=== PATIENT | female | born 1990 | race Caucasian/White ===

== ENCOUNTER 2019-01-29 12:57 | Day surgery (SDC) | payer OTHER ==
[2019-01-29] MEDS ORDERED: LIDOCAINE HCL 2% 100 MG/5 ML IJ ONE (12:58)
[2019-01-29] MEDS ORDERED: Depo-Medrol 40 MG/ML IM ONE (12:58)
[2019-01-29] MEDS ORDERED: Ketamine HCl 50 MG/ML IJ ONE (12:58)
[2019-01-29] MEDS ORDERED: Sodium Chloride 0.9(Preservative Free) 10 ML IJ ONE (12:58)
[2019-01-29] MEDS ORDERED: DIPRIVAN 200 MG/20 ML IV ONE (12:58)
[2019-01-29] MEDS ORDERED: Lactated Ringers 1,000 ML IV ONE (14:26)
--- NOTE | 2019-01-29 16:23 | XRAY ---
Indication: Right L4-S1 transforaminal SOBEIDA. Intraoperative fluoroscopy was provided for 1 minute. 3 digital spot images submitted for interpretation demonstrates posterior needle tips in the expected region of the left and right L4-L5 nerve roots. Small amount of contrast injected for needle tip placement. Correlate with intraoperative findings/report.
--- NOTE | 2019-01-29 16:27 | XRAY ---
1 minute of fluoroscopy was used in surgery for L4-L5 and L5-S1 transforaminal SOBEIDA.
== END 2019-01-29 15:13 | disposition home or self-care (01) ==
LOC: SDC-PAIN 12:57
PROVIDERS: ATTEND Psychiatry & Neurology Pain Medicine
DX: M54.17 Radiculopathy, lumbosacral region (principal); M54.30 Sciatica, unspecified side; E03.9 Hypothyroidism, unspecified; K21.9 Gastro-esophageal reflux disease without esophagitis; F41.8 Other specified anxiety disorders; M41.9 Scoliosis, unspecified; Z79.899 Other long term (current) drug therapy
CPT/HCPCS: 64483; 64484; 72100; 77002; J1030; J2704; Q9966

== ENCOUNTER 2019-07-23 10:55 | Day surgery (SDC) | payer SELFPAY ==
[2019-07-23] MEDS ORDERED: DIPRIVAN 200 MG/20 ML IV ONE (11:50)
[2019-07-23] MEDS ORDERED: Ketamine HCl 50 MG/ML ONE (11:50)
[2019-07-23] MEDS ORDERED: Lactated Ringers 1,000 ML IV ONE (12:48)
== END 2019-07-23 11:45 | disposition home or self-care (01) ==
LOC: SDC-PAIN 10:55
PROVIDERS: ATTEND Psychiatry & Neurology Pain Medicine
DX: Z53.8 Procedure and treatment not carried out for other reasons (principal)
CPT/HCPCS: 84703; J2704

== ENCOUNTER 2022-12-15 22:30 | Emergency (ER) | payer OTHER ==
[2022-12-15 23:23] VITALS: BP 133/76; PULSE 94; O2SAT 99
[2022-12-15] MEDS ORDERED: TORAdol 30 mg Injection IM ONE (23:52)
[2022-12-15] MEDS ORDERED: Norflex 60 MG/2 ML IM ONE (23:52)
[2022-12-15] MEDS ORDERED: Norflex 60 MG/2 ML ONE (23:57)
[2022-12-15] MEDS ORDERED: TORAdol 30 mg Injection ONE (23:57)
--- NOTE | 2022-12-16 | ERPHSYRPT ---
- History of Present Illness Time Seen by Provider: 12/15/22 23:55 Source: patient, family Exam Limitations: no limitations Patient Subjective Stated Complaint: L sided lower back pain that radiates to buttock and down leg Triage Nursing Assessment: pt to ED c/o L lower back muscle spasms that radiate down to L buttock and down L leg. pt rates 10/10 pain. worse when sitting or changing position. pain woke her from sleep tonight and she drove herself to ED. pt states this has been going on for about 2 weeks now; she has seen Ngoc Eckert, JOSE RAFAEL and recieved IM steroid injection, which helped alleviate pain for 1 day. when pain returned, Ngoc called in another medication that did not help. pt also was seen at [facility] this week but was told nothing could be done in that department, and was offered ice pack but that did not alleviate pain. Physician History: pt has hx of chronic sciatica and LBP but has already had steroids oral and IM - no epidurals or other spinal injections. No Hx Cancer . No bowel or bladder symptoms. no trauma. has radicular L5 symptoms but sensation is intact adn motor streght and reflexes intact. midline nontender. No fever or cough. No abd pain and nontender without mass or peritoneal signs on exam. Neg homas, no erythema or swelling NV intact. Discussed labs/radiology imaging with pt and we both agree not really indicated with this stable hx, and same sxs . will try different pain modalities. Timing/Duration: week(s) Method of Injury: unknown Back Pain Location: lumbar spine, paraspinous muscles Back Pain Radiation: buttocks, upper legs, lower legs, feet Severity of Pain-Max: moderate Severity of Pain-Current: moderate Modifying Factors: Improves With: movement Associated Symptoms: denies symptoms Previous symptoms: same symptoms as today Allergies/Adverse Reactions: No Known Drug Allergies Allergy (Unverified 05/17/16 15:42) Home Medications: Cyclobenzaprine HCl 10 mg [Flexeril 10 MG] 10 mg PO Q6HPRN PRN 02/23/16 [History] Gabapentin 100 mg PO TID 02/23/16 [History] Buspirone HCl 5 mg [Buspar 5 mg] 5 mg PO BID 12/15/22 [History] Hx Tetanus, Diphtheria Vaccination/Date Given: Yes Hx Influenza Vaccination/Date Given: Yes Hx Pneumococcal Vaccination/Date Given: No Immunizations Up to Date: Yes Travel Risk - International Travel Have you traveled outside of the country in past 3 weeks: No - Coronavirus Screening Are you exhibiting any of the following symptoms?: No Close contact with a COVID-19 positive Pt in past 14-21 Days: No - Vaccine Status Have you recieved a Covid-19 vaccination: No - Review of Systems Constitutional: No Fever, No Chills Eyes: No Symptoms Ears, Nose, & Throat: No Symptoms Respiratory: No Cough, No Dyspnea Cardiac: No Chest Pain, No Edema, No Syncope Abdominal/Gastrointestinal: No Abdominal Pain, No Nausea, No Vomiting, No Diarrhea Genitourinary Symptoms: No Dysuria, No Frequency, No Urgency, No Flank Pain Musculoskeletal: Back Pain, No Neck Pain, No Fall Skin: No Symptoms, No Rash Neurological: No Dizziness, No Focal Weakness, No Sensory Changes Psychological: No Symptoms Endocrine: No Symptoms Hematologic/Lymphatic: No Symptoms Immunological/Allergic: No Symptoms All Other Systems: Reviewed and Negative - Past Medical History Pertinent Past Medical History: Yes Neurological History: No Pertinent History ENT History: No Pertinent History Cardiac History: No Pertinent History Respiratory History: No Pertinent History Endocrine Medical History: Hypothyroidism Musculoskeletal History: Other GI Medical History: No Pertinent History History: No Pertinent History Psycho-Social History: Anxiety, Depression Female Reproductive Disorders: No Pertinent History Other Medical History: PCOS. lumbar scolosis - Past Surgical History Past Surgical History: Yes Musculoskeletal: Other Female Surgical History: Tubal Ligation Other Surgical History: [facility] - Social History Smoking Status: Former smoker How long have you smoked: 1/2 Exposure to second hand smoke: No Drug Use: none Patient Lives Alone: No - Female History Hx Last Menstrual Period: currently Hx Now: No - Nursing Vital Signs Nursing Vital Signs: Initial Vital Signs Temperature 96.5 F 12/15/22 23:07 Pulse Rate 94 H 12/15/22 23:07 Respiratory Rate 18 12/15/22 23:07 Blood Pressure 133/76 12/15/22 23:07 O2 Sat by Pulse Oximetry 99 12/15/22 23:07 Pain Scale Pain Intensity [Left Lower 10 Posterior Back] Pain Intensity 10 - Physical Exam General Appearance: no apparent distress, alert Eye Exam: PERRL/EOMI, eyes nml inspection Neck Exam: normal inspection, non-tender, supple, full range of motion, No meningismus, No midline tenderness Respiratory Exam: normal breath sounds, lungs clear, No respiratory distress Cardiovascular Exam: regular rate/rhythm, normal heart sounds Gastrointestinal Exam: soft, No tenderness, No distention, No mass, No guarding Pelvic Exam: deferred Rectal Exam: deferred Back Exam: normal inspection, decreased range of motion, muscle spasm, No vertebral tenderness, No point tenderness Extremity Exam: normal inspection, normal range of motion, No calf tenderness, No pedal edema Peripheral Pulses: carotid (R): 2+, carotid (L): 2+, femoral (R): 2+, femoral (L): 2+, dorsalis-pedis (R): 2+, dorsalis-pedis (L): 2+ Neurologic Exam: alert, oriented x 3, cooperative, 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, normal mood/affect, nml station & gait, sensation nml, No motor deficits Skin Exam: normal color, warm, dry, No rash SpO2 Interpretation: normal SpO2: 99 O2 Delivery: Room Air - Course Nursing assessment & vital signs reviewed: Yes Ordered Tests: Medication Summary Discontinued Medications Generic Name Dose Route Start Last Admin Trade Name Freq PRN Reason Stop Dose Admin Ketorolac Tromethamine 60 mg 12/15/22 23:52 12/15/22 23:58 Ketorolac Tromethamine 30 Mg/Ml Inj IM 12/15/22 23:53 60 mg STAT ONE Administration Ketorolac Tromethamine Confirm 12/15/22 23:57 Ketorolac Tromethamine 30 Mg/Ml Inj Administered 12/15/22 23:58 Dose 60 mg .ROUTE .STK-MED ONE Orphenadrine Citrate 60 mg 12/15/22 23:52 12/15/22 23:59 Orphenadrine Citrate 60 Mg/2 Ml Vial IM 12/15/22 23:53 60 mg STAT ONE Administration Orphenadrine Citrate Confirm 12/15/22 23:57 Orphenadrine Citrate 60 Mg/2 Ml Vial Administered 12/15/22 23:58 Dose 60 mg .ROUTE .STK-MED ONE Tizanidine HCl 4 mg 12/16/22 01:51 12/16/22 02:03 Tizanidine Hcl 4 Mg Tablet PO 12/16/22 01:52 4 mg STAT ONE Administration - Progress Progress: improved, re-examined Progress Note: 12/16/22 01:48 pain is improved , but still muscle spasm and discussed with pt trying tinazidine and we will proceed. 12/16/22 02:40 pt spasm now has also improved and she feels comfortable to go home to f/u with pain dr. discussed new muscle relaxant tinazidine with pt and this worked well here do we will prescribe for home. Counseled pt/family regarding: diagnosis, need for follow-up - Departure Departure Disposition: Home Clinical Impression: Left sided sciatica, Lumbar back pain with radiculopathy affecting left lower extremity Condition: Good Critical Care Time: No Referrals: YESSENIA ECKERT NP [Primary Care Provider] - Follow up/PCP as directed Instructions: Sciatica (DC), Radiculopathy (DC) Additional Instructions: followup with your Dr. as there may now be an increase in the lumbar disc herniation on the left side. you may need a new MRI to evaluate. Followup with your pain dr as planned as these are generally managed that way after workup with MRI excludes nerve damage return meantime if fever, abdominal pain, bowel or bladder symptoms muscle weakness or other concerns. Prescriptions: Tizanidine HCl 4 mg [Zanaflex 4 MG] 4 mg PO BID PRN PRN #14 tablet PRN Reason: Muscle Spasms
[2022-12-16] MEDS ORDERED: Zanaflex 4 MG PO ONE (01:51)
== END 2022-12-16 02:59 | disposition home or self-care (01) ==
LOC: ED 22:30
DX: M54.16 Radiculopathy, lumbar region (principal); M54.50 Low back pain, unspecified; M54.32 Sciatica, left side; Z79.899 Other long term (current) drug therapy; Z28.310 Unvaccinated for COVID-19
CPT/HCPCS: 96372; 99283; J1885; J2360; A9270-GY

== ENCOUNTER 2023-02-07 12:06 | Day surgery (SDC) | payer OTHER ==
[2023-02-07] MEDS ORDERED: LIDOCAINE HCL 1% 50 MG/5 ML VL PF IJ ONE (12:07)
[2023-02-07] MEDS ORDERED: Decadron 4 MG INJ IV ONE (12:07)
[2023-02-07] MEDS ORDERED: Depo-Medrol 40 MG/ML IM ONE (12:07)
[2023-02-07] MEDS ORDERED: Sodium Chloride 0.9(Preservative Free) 10 ML IJ ONE (12:07)
[2023-02-07] MEDS ORDERED: DIPRIVAN 200 MG/20 ML IV ONE (13:51)
--- NOTE | 2023-02-07 14:39 | XRAY ---
Indication: Left L4-S1 transforaminal SOBEIDA. Intraoperative fluoroscopy provided for 35 seconds. 4 digital spot images submitted for interpretation demonstrates posterior needle tips projecting over the expected the left L4 and L5 nerve roots. Small amount of contrast injected for needle tip placement. Correlate with intraoperative findings/report.
--- NOTE | 2023-02-07 14:39 | XRAY ---
Indication: Left piriformis injection. Intraoperative fluoroscopy provided for 8 seconds. Single digital spot image submitted for interpretation demonstrates posterior needle tip projecting over the expected the left piriformis muscle. Small amount of contrast injected for needle tip placement. Correlate with intraoperative findings/report.
--- NOTE | 2023-02-07 14:41 | XRAY ---
35 seconds of fluoroscopy was used in surgery for a left L4-S1 transforaminal SOBEIDA.
--- NOTE | 2023-02-07 14:41 | XRAY ---
8 seconds of fluoroscopy was used in surgery for a left piriformis injection.
[2023-02-07] MEDS ORDERED: Lactated Ringers 1,000 ML IV ONE (14:50)
== END 2023-02-07 14:30 | disposition home or self-care (01) ==
LOC: SDC-PAIN 12:06
PROVIDERS: ATTEND Psychiatry & Neurology Pain Medicine
DX: M54.16 Radiculopathy, lumbar region (principal); M79.18 Myalgia, other site; Z79.899 Other long term (current) drug therapy
CPT/HCPCS: 20552; 64483; 64484; 72100; 72170; 77002; 77003; 81025; J1030; J1100; J2001; J2704; Q9966

== ENCOUNTER 2023-03-14 12:16 | Day surgery (SDC) | payer BC ==
[2023-03-14] MEDS ORDERED: Depo-Medrol 40 MG/ML IM ONE (12:17)
[2023-03-14] MEDS ORDERED: Sodium Chloride 0.9(Preservative Free) 10 ML IJ ONE (12:17)
[2023-03-14 12:29] LABS: HCG URINE TEST NEGATIVE (NEGATIVE)
[2023-03-14] MEDS ORDERED: DIPRIVAN 200 MG/20 ML IV ONE (13:24)
[2023-03-14] MEDS ORDERED: Xylocaine-Mpf 2% 5 Ml Vial ONE (13:25)
[2023-03-14] MEDS ORDERED: Lactated Ringers 1,000 ML IV ONE (14:48)
--- NOTE | 2023-03-14 18:21 | XRAY ---
Indication: Right L4-S1 transforaminal SOBEIDA. Intraoperative fluoroscopy provided for 35 seconds. 6 digital spot image submitted for interpretation demonstrates posterior needle tips projecting over the expected right L4 and L5 nerve roots. Small amount of contrast injected for needle tip placement. Correlate with intraoperative findings/report.
--- NOTE | 2023-03-14 19:01 | XRAY ---
35 seconds of fluoroscopy was used in surgery for a right L4-S1 transforaminal SOBEIDA.
== END 2023-03-14 13:50 | disposition home or self-care (01) ==
LOC: SDC-PAIN 12:16
PROVIDERS: ATTEND Psychiatry & Neurology Pain Medicine
DX: M54.16 Radiculopathy, lumbar region (principal); Z79.899 Other long term (current) drug therapy
CPT/HCPCS: 36415; 64483; 64484; 72100; 77003; 81025; J1030; J2704; Q9966

== ENCOUNTER 2023-07-25 12:09 | Day surgery (SDC) | payer BC ==
[2023-07-25] MEDS ORDERED: LIDOCAINE HCL 2% 100 MG/5 ML IJ ONE (12:10)
[2023-07-25 13:25] LABS: HCG URINE TEST NEGATIVE (NEGATIVE)
[2023-07-25] MEDS ORDERED: DIPRIVAN 200 MG/20 ML IV ONE (14:26)
[2023-07-25] MEDS ORDERED: Lactated Ringers 1,000 ML IV ONE (14:45)
--- NOTE | 2023-07-25 14:57 | XRAY ---
Indication: Bilateral L4-S1 MBB. Intraoperative fluoroscopy provided for 17 seconds. Single digital spot image submitted for interpretation demonstrates posterior needle tips projecting over the expected left and right L4-S1 nerve roots. Correlate with intraoperative findings/report.
--- NOTE | 2023-07-25 16:57 | XRAY ---
17 seconds of fluoroscopy was used in surgery for a bilateral L4-S1 MBB.
== END 2023-07-25 14:55 | disposition home or self-care (01) ==
LOC: SDC-PAIN 12:09
PROVIDERS: ATTEND Psychiatry & Neurology Pain Medicine
DX: M47.816 Spondylosis without myelopathy or radiculopathy, lumbar region (principal); Z79.899 Other long term (current) drug therapy
CPT/HCPCS: 64493; 64494; 72020; 77002; 81025; J2704

== ENCOUNTER 2023-08-29 08:04 | Day surgery (SDC) | payer BC ==
[2023-08-29] MEDS ORDERED: BUPIVACAINE 0.5% VIAL IJ ONE (08:05)
[2023-08-29 09:05] LABS: HCG URINE TEST NEGATIVE (NEGATIVE)
[2023-08-29] MEDS ORDERED: DIPRIVAN 200 MG/20 ML IV ONE ×2 (09:52→10:01)
--- NOTE | 2023-08-29 13:54 | XRAY ---
24 seconds of fluoroscopy was used in surgery for a bilateral L4-S1 MBB.
--- NOTE | 2023-08-29 13:54 | XRAY ---
Indication: Bilateral L4-S1 MBB. Intraoperative fluoroscopy provided for 24 seconds. Single digital spot image submitted for interpretation demonstrates posterior needle tips projecting over the expected left and right L4-S1 nerve roots. Correlate with intraoperative findings/report.
[2023-08-29] MEDS ORDERED: Lactated Ringers 1,000 ML IV ONE (14:59)
== END 2023-08-29 10:20 | disposition home or self-care (01) ==
LOC: SDC-PAIN 08:04
PROVIDERS: ATTEND Psychiatry & Neurology Pain Medicine
DX: M47.816 Spondylosis without myelopathy or radiculopathy, lumbar region (principal); R73.03 Prediabetes; Z79.899 Other long term (current) drug therapy
CPT/HCPCS: 64493; 64494; 72020; 77002; 81025; 82947; J2704

== ENCOUNTER 2023-09-26 08:25 | Day surgery (SDC) | payer BC ==
[2023-09-26] MEDS ORDERED: Depo-Medrol 40 MG/ML IM ONE (08:26)
[2023-09-26] MEDS ORDERED: BUPIVACAINE 0.5% VIAL IJ ONE (08:26)
[2023-09-26] MEDS ORDERED: XYLOCAINE-MPF 1% 5ML SDV IJ ONE (08:26)
[2023-09-26 08:44] LABS: HCG URINE TEST NEGATIVE (NEGATIVE)
[2023-09-26] MEDS ORDERED: DIPRIVAN 200 MG/20 ML IV ONE (09:21)
[2023-09-26] MEDS ORDERED: Versed 2 MG/2 ML Injection ONE (09:21)
[2023-09-26] MEDS ORDERED: Lactated Ringers 1,000 ML IV ONE (10:56)
--- NOTE | 2023-09-26 11:21 | XRAY ---
Indication: Right L4-S1 RFA. Intraoperative fluoroscopy provided for 30 seconds. 3 digital spot images submitted for interpretation demonstrates posterior needle tips projecting over the expected right L4-S1 nerve roots. Correlate with intraoperative findings/report.
--- NOTE | 2023-09-26 11:28 | XRAY ---
30 seconds of fluoroscopy was used in surgery for a right L4-S1 RFA.
== END 2023-09-26 09:59 | disposition home or self-care (01) ==
LOC: SDC-PAIN 08:25
PROVIDERS: ATTEND Psychiatry & Neurology Pain Medicine
DX: M47.816 Spondylosis without myelopathy or radiculopathy, lumbar region (principal); R73.03 Prediabetes; Z79.899 Other long term (current) drug therapy
CPT/HCPCS: 64635; 64636; 72100; 77002; 81025; 82947; J1030; J2250; J2704

== ENCOUNTER 2023-10-10 08:14 | Day surgery (SDC) | payer BC ==
[2023-10-10] MEDS ORDERED: XYLOCAINE-MPF 1% 5ML SDV IJ ONE (08:15)
[2023-10-10] MEDS ORDERED: BUPIVACAINE 0.5% VIAL IJ ONE (08:15)
[2023-10-10] MEDS ORDERED: Depo-Medrol 40 MG/ML IM ONE (08:15)
[2023-10-10 08:36] LABS: HCG URINE TEST NEGATIVE (NEGATIVE)
[2023-10-10] MEDS ORDERED: DIPRIVAN 200 MG/20 ML IV ONE (09:40)
[2023-10-10] MEDS ORDERED: MORPHINE SULFATE 2 MG INJ ONE ×2 (10:02→10:24)
[2023-10-10] MEDS ORDERED: Lactated Ringers 1,000 ML IV ONE (13:44)
--- NOTE | 2023-10-10 20:52 | XRAY ---
Indication: Left L4-S1 RFA. Intraoperative fluoroscopy provided for 29 seconds. 3 digital spot image submitted for interpretation demonstrates posterior needle tip projecting over the expected left L4-S1 nerve roots. Correlate with intraoperative findings/report.
--- NOTE | 2023-10-10 21:41 | XRAY ---
29 seconds of fluoroscopy was used in surgery for a left L4-S1 RFA.
== END 2023-10-10 10:57 | disposition home or self-care (01) ==
LOC: SDC-PAIN 08:14
PROVIDERS: ATTEND Psychiatry & Neurology Pain Medicine
DX: M54.16 Radiculopathy, lumbar region (principal)
CPT/HCPCS: 64635; 64636; 72100; 77002; 81025; 82947; J1030; J2270; J2704

== ENCOUNTER 2023-11-28 08:00 | Day surgery (SDC) | payer BC ==
[2023-11-28] MEDS ORDERED: BUPIVACAINE 0.5% VIAL IJ ONE (08:01)
[2023-11-28] MEDS ORDERED: Depo-Medrol 40 MG/ML IM ONE (08:01)
[2023-11-28 09:02] LABS: HCG URINE TEST NEGATIVE (NEGATIVE)
[2023-11-28] MEDS ORDERED: DIPRIVAN 200 MG/20 ML IV ONE ×2 (10:21→10:25)
[2023-11-28] MEDS ORDERED: MORPHINE SULFATE 2 MG INJ ONE (10:37)
--- NOTE | 2023-11-28 11:57 | XRAY ---
Indication: Bilateral SI joint injection. Intraoperative fluoroscopy provided for 24 seconds. 4 digital spot images submitted for interpretation demonstrates posterior needle tip projecting over the left and right SI joint. Correlate with intraoperative findings/report.
--- NOTE | 2023-11-28 12:34 | XRAY ---
24 seconds of fluoroscopy was used in surgery for a bilateral sacroiliac joint injection.
[2023-11-28] MEDS ORDERED: Lactated Ringers 1,000 ML IV ONE (14:01)
== END 2023-11-28 11:00 | disposition home or self-care (01) ==
LOC: SDC-PAIN 08:00
PROVIDERS: ATTEND Psychiatry & Neurology Pain Medicine
DX: M46.1 Sacroiliitis, not elsewhere classified (principal)
CPT/HCPCS: 27096; 72202; 77002; 81025; 82947; J1030; J2270; J2704; G0260

== ENCOUNTER 2024-04-30 11:18 | Day surgery (SDC) | payer BC ==
[2024-04-30] MEDS ORDERED: Depo-Medrol 40 MG/ML IM ONE (11:19)
[2024-04-30] MEDS ORDERED: BUPIVACAINE 0.5% VIAL IJ ONE (11:19)
[2024-04-30 11:38] LABS: HCG URINE TEST NEGATIVE (NEGATIVE)
[2024-04-30] MEDS ORDERED: DIPRIVAN 200 MG/20 ML IV ONE (13:18)
--- NOTE | 2024-04-30 14:53 | XRAY ---
Indication: Bilateral SI joint injection. Intraoperative fluoroscopy provided for 26 seconds. 2 digital spot image submitted for interpretation demonstrates posterior needle tips projecting over the expected left and right SI joint. Small amount of contrast injected for needle tip placement. Correlate with intraoperative findings/report.
[2024-04-30] MEDS ORDERED: Lactated Ringers 1,000 ML IV ONE (14:56)
--- NOTE | 2024-04-30 15:19 | XRAY ---
26 seconds of fluoroscopy was used in surgery for a bilateral sacroiliac joint injection.
== END 2024-04-30 13:45 | disposition home or self-care (01) ==
LOC: SDC-PAIN 11:18
PROVIDERS: ATTEND Psychiatry & Neurology Pain Medicine
DX: M46.1 Sacroiliitis, not elsewhere classified (principal); R73.03 Prediabetes
CPT/HCPCS: 27096; 72202; 77002; 81025; 82947; J1010; J2704; Q9966; G0260

== ENCOUNTER 2024-08-30 14:57 | Emergency (ER) | payer BC ==
[2024-08-30 15:09] VITALS: TEMP 96.7; O2SAT 100
[2024-08-30] MEDS ORDERED: TORAdol 30 mg Injection ONE (15:40)
[2024-08-30] MEDS ORDERED: MORPHINE SULFATE 4 MG INJ ONE (15:40)
[2024-08-30] MEDS ORDERED: Sodium Chloride 0.9% 1000 ML 1,000 ML ONE (15:40)
[2024-08-30] MEDS ORDERED: Zofran 4 MG/2 ML VIAL ONE (15:40)
--- NOTE | 2024-08-30 15:40 | ERPHSYRPT ---
- History of Present Illness Time Seen by Provider: 08/30/24 15:35 Historian: patient Exam Limitations: no limitations Patient Subjective Stated Complaint: PT states "I have not been able to keep anything down since sunday and my belly feels like it is going to explode it hurts so bad." Triage Nursing Assessment: Pt presented alert and oriented X 3, skin pwd. pt ambulates with an upright steady gait, able to speak in clear full sentences. Physician History: PT states "I have not been able to keep anything down since Sunday and my belly feels like it is going to explode it hurts so bad." This 34-year-old female with significant past medical history of lower abdominal pain for which patient has underwent multiple procedures including ablation also has a history of anxiety and depression started having left lower quadrant abdominal pain since Sunday. She is unable to eat or drink at all since Sunday and her symptoms including pain got worse today so she came to the emergency room. She denies any fever chills but complaining of nausea. She also denies any blood in her stool or urine. Timing/Duration: day(s) (3-4 days) Abdominal Pain Onset Location: LLQ Pain Radiation: no radiation Severity of Pain-Max: moderate Severity of Pain-Current: moderate Modifying Factors: Improves With: nothing Associated Symptoms: loss of appetite, nausea, vomiting, weakness Body Map: 1 - pain Allergies/Adverse Reactions: acetaminophen [From Percocet] Allergy (Intermediate, Verified 08/30/24 15:09) hives and itch oxycodone [From Percocet] Allergy (Intermediate, Verified 08/30/24 15:09) hives and itch Home Medications: Gabapentin 100 mg PO TID 02/23/16 [History] Duloxetine HCl 30 mg [Cymbalta 30 MG Capsule] 30 mg PO DAILY 08/30/24 [History] Fluoxetine HCl 10 mg [Prozac 10 mg] 10 mg PO DAILY 08/30/24 [History] Ropinirole HCl 0.5 mg [Requip 0.5 MG] 0.25 mg PO DAILY 08/30/24 [History] Hx Tetanus, Diphtheria Vaccination/Date Given: Yes Hx Influenza Vaccination/Date Given: Yes Hx Pneumococcal Vaccination/Date Given: No Immunizations Up to Date: No Travel Risk - International Travel Have you traveled outside of the country in past 3 weeks: No - Emerging Infectious Disease Are you exhibiting symptoms associated with any current EIDs: Yes Symptoms: Abdominal Pain - Review of Systems Constitutional: No Fever, No Chills Eyes: No Symptoms Ears, Nose, & Throat: No Symptoms Respiratory: No Cough, No Dyspnea Cardiac: No Chest Pain, No Edema, No Syncope Abdominal/Gastrointestinal: Abdominal Pain, Nausea, No Vomiting, No Diarrhea Genitourinary Symptoms: No Dysuria Musculoskeletal: No Back Pain, No Neck Pain Skin: No Rash Neurological: No Dizziness, No Focal Weakness, No Sensory Changes Psychological: No Symptoms Endocrine: No Symptoms All Other Systems: Reviewed and Negative - Past Medical History Pertinent Past Medical History: Yes Neurological History: No Pertinent History ENT History: No Pertinent History Cardiac History: No Pertinent History Respiratory History: No Pertinent History Endocrine Medical History: No Pertinent History, Hypothyroidism Musculoskeletal History: Degenerative Disk Disease, Osteoarthritis GI Medical History: No Pertinent History History: No Pertinent History Psycho-Social History: Anxiety, Depression Female Reproductive Disorders: No Pertinent History Other Medical History: SX HX: TUBAL LIGATION AND NINE OUTPATIENT PROCEDURES FOR INJECTIONS AND LAST TWO WERE ABLATIONS. MOST RECENTLY IN SEPTEMBER WITH SOME DECREASE IN LOWER LUMBAR REGION. - Past Surgical History Past Surgical History: Yes Musculoskeletal: Other Female Surgical History: Tubal Ligation Other Surgical History: [facility] at [facility] - Female History Hx Last Menstrual Period: 08/26/2024 Hx Now: No - Social History Smoking Status: Former smoker How long have you smoked: 1/2 Exposure to second hand smoke: Yes Alcohol Use: None Drug Use: none Patient Lives Alone: No - Social Determinants of Health Will the patient participate in the screening: Declined to provide - Nursing Vital Signs Nursing Vital Signs: Initial Vital Signs Temperature 96.7 F 08/30/24 15:04 Pulse Rate 71 08/30/24 15:04 Respiratory Rate 18 08/30/24 15:04 Blood Pressure 163/84 08/30/24 15:04 O2 Sat by Pulse Oximetry 100 08/30/24 15:04 Pain Scale Pain Intensity 4 - Physical Exam General Appearance: no apparent distress, alert Eye Exam: PERRL/EOMI, eyes nml inspection Ears, Nose, Throat Exam: normal ENT inspection, pharynx normal, moist mucous membranes Neck Exam: normal inspection, non-tender, supple, full range of motion Respiratory Exam: normal breath sounds, lungs clear, No respiratory distress Cardiovascular Exam: regular rate/rhythm, normal heart sounds Gastrointestinal/Abdomen Exam: soft, tenderness (LLQ), guarding, No mass, No rebound Pelvic Exam: not done Back Exam: normal inspection, normal range of motion, No CVA tenderness, No vertebral tenderness Extremity Exam: normal inspection, normal range of motion, pelvis stable Neurologic Exam: alert, oriented x 3, cooperative, normal mood/affect, nml cerebellar function, sensation nml, No motor deficits Skin Exam: normal color, warm, dry SpO2: 100 - Course Nursing assessment & vital signs reviewed: Yes Ordered Tests: Active Orders 24 hr Category Date Time Status ABDOMEN AND PELVIS W CONTRAST [CT] Stat Exams 08/30/24 15:24 Completed AMYLASE Stat Lab 08/30/24 15:45 Completed CBC W DIFF Stat Lab 08/30/24 15:45 Completed CMP Stat Lab 08/30/24 15:45 Completed HCG QUALITATIVE, SERUM Stat Lab 08/30/24 15:45 Completed UA W/RFX UR CULTURE Stat Lab 08/30/24 17:16 Ordered Medication Summary Discontinued Medications Generic Name Dose Route Start Last Admin Trade Name Freq PRN Reason Stop Dose Admin Sodium Chloride 1,000 mls @ 999 mls/hr 08/30/24 15:23 08/30/24 16:44 Sodium Chloride 0.9% 1000 Ml IV 08/30/24 16:23 Infused .Q1H1M STA Infusion Sodium Chloride Confirm 08/30/24 15:40 Sodium Chloride 0.9% 1000 Ml Administered 08/30/24 15:41 Dose 1,000 mls @ ud .ROUTE .STK-MED ONE Ceftriaxone Sodium 1 gm in 100 mls @ 200 mls/hr 08/30/24 16:18 08/30/24 17:06 Rocephin 1 Gm / 100 Ml Nacl IV 08/30/24 16:47 Infused STAT ONE Infusion Ceftriaxone Sodium Confirm 08/30/24 16:30 Rocephin 1 Gm / 100 Ml Nacl Administered 08/30/24 16:31 Dose 1 gm in 100 mls @ ud IV .STK-MED ONE Ketorolac Tromethamine 30 mg 08/30/24 15:23 08/30/24 15:48 Ketorolac Tromethamine 30 Mg/Ml Inj IV 08/30/24 15:24 30 mg STAT ONE Administration Ketorolac Tromethamine Confirm 08/30/24 15:40 Ketorolac Tromethamine 30 Mg/Ml Inj Administered 08/30/24 15:41 Dose 30 mg .ROUTE .STK-MED ONE Morphine Sulfate 4 mg 08/30/24 15:23 08/30/24 15:49 Morphine Sulfate 4 Mg/Ml Injection IV 08/30/24 15:24 4 mg STAT ONE Administration Morphine Sulfate Confirm 08/30/24 15:40 Morphine Sulfate 4 Mg/Ml Injection Administered 08/30/24 15:41 Dose 4 mg .ROUTE .STK-MED ONE Ondansetron HCl 4 mg 08/30/24 15:23 08/30/24 15:46 Ondansetron Hcl 4 Mg/2 Ml Vial IV 08/30/24 15:24 4 mg STAT ONE Administration Ondansetron HCl Confirm 08/30/24 15:40 Ondansetron Hcl 4 Mg/2 Ml Vial Administered 08/30/24 15:41 Dose 4 mg .ROUTE .STK-MED ONE Lab/Rad Data: Laboratory Result Diagrams 08/30/24 15:45 08/30/24 15:45 Laboratory Results 08/30/24 08/30/24 08/30/24 Range/Units 15:45 15:45 15:45 WBC 16.1 H (3.98-10.04) x10^3/uL RBC 4.72 (3.93-5.22) x10^6/uL Hgb 14.1 (11.2-15.7) g/dL Hct 42.0 (34.1-44.9) % MCV 89.0 (79.4-94.8) fL MCH 29.9 (25.6-32.2) pg MCHC 33.6 (32.2-35.5) g/dL RDW 12.4 (11.7-14.4) % Plt Count 344 (182-369) x10^3/uL MPV 10.1 (9.4-12.3) fL Gran % 82.2 H (34.0-71.1) % Immature Gran % (Auto) 0.5 H (0.001-0.429) % Nucleat RBC Rel Count 0.0 (0.00-0.2) % Eos # (Auto) 0.11 (0.04-0.36) x10^3/uL Immature Gran # (Auto) 0.08 H (0.001-0.031) x10^3u/L Absolute Lymphs (auto) 1.75 (1.18-3.74) x10^3/uL Absolute Monos (auto) 0.88 H (0.24-0.86) x10^3/uL Absolute Nucleated RBC 0.00 (0.00-0.012) x10^3u/L Lymphocytes % 10.8 L (19.3-51.7) % Monocytes % 5.5 (4.7-12.5) % Eosinophils % 0.7 (0.7-5.8) % Basophils % 0.3 (0.1-1.2) % Absolute Granulocytes 13.27 H (1.56-6.13) x10^3/uL Basophils # 0.05 (0.01-0.08) x10^3/uL Sodium 141 (135-145) mmol/L Potassium 3.7 (3.5-5.1) mmol/L Chloride 105 (98-107) mmol/L Carbon Dioxide 26 (22-30) mmol/L Anion Gap 14.1 (5-15) MEQ/L BUN 7 (7-17) mg/dL Creatinine 0.94 (0.52-1.04) mg/dL Estimated GFR 81.2 ML/MIN Glucose 92 (74-106) mg/dL Calcium 9.0 (8.4-10.2) mg/dL Total Bilirubin 0.80 (0.2-1.3) mg/dL AST 19 (14-36) U/L ALT 11 (0-35) U/L Alkaline Phosphatase 70 (38-126) U/L Serum Total Protein 7.7 (6.3-8.2) g/dL Albumin 4.3 (3.5-5.0) g/dL Amylase 103 (30-110) U/L Serum HCG, Qual NEGATIVE (NEGATIVE) Medical Desision Making - Independent Historian Additional History obtained from: Relative/friend - Diagnostic Testing Diagnostic test were ordered, analyzed, and reviewed by me: Yes Radiological Interpretation: Interpreted by me, Teleradiologist Report - Risk of complications Low Risk: Low risk of morbidity from additional dx testing or treatment - Departure Departure Disposition: Home Clinical Impression: Left lower quadrant abdominal pain Condition: Stable Critical Care Time: No Referrals: YESSENIA HUGHES, THREAD PULLING MACHINE ATTENDANT [Primary Care Provider] - Follow Up with PCP/3 days Instructions: Severe Abdominal Pain, Adult (DC) Additional Instructions: Discharge/Care Plan MARIANNE ARANA was seen on 08/30/24 in the Emergency Room. The patient was counseled regarding Diagnosis,Lab results, Imaging studies, need for follow up and when to return to the Emergency Room. Prescriptions given: Discharge Note I have spoken with the patient and/or caregivers. I have explained the patient's condition, diagnosis and treatment plan based on the information available to me at this time. I have answered the patient's and/or caregiver's questions and addressed any concerns. The patient and/or caregivers have as good understanding of the patient's diagnosis, condition and treatment plan as can be expected at this point. The vital signs have been stable. The patient's condition is stable and appropriate for discharge from the emergency department. The patient will pursue further outpatient evaluation with the primary care physician or other designated or consulting physician as outlined in the discharge instructions. The patient and/or caregivers are agreeable to this plan of care and follow-up instructions have been explained in detail. The patient and/or caregivers have received these instruction. The patient/and or caregivers are aware that any significant change in condition or worsening of symptoms should prompt an immediate return to this or the closest emergency department or call 911. MARIANNE ARANA was seen on 08/30/24 n the Emergency Room. At that time you were treated for an emergent condition, during your visit Laboratory, Radiology and/or other procedures may have been ordered. It is very important that you follow-up with your Primary Care Physician YESSENIA HUGHES within the next 24-48 hours to review your Emergency Room visit and the final results of testing that was ordered. Some test results such as Urine Cultures, Blood Cultures, and other cultures if ordered will not be finalized for 24-48 hours. If you do not have a Primary Care Provider please call the medical records department at [phone] ext [phone] to obtain a copy of your results or you may sign into our patient portal to obtain these results by visiting us @ [email or web address] and completing the following steps: 1. Click on the Patient Portal link 2. Click the Patient Self Enrollment Link to complete the enrollment form and entering your 3. Once the enrollment form is completed you will receive an email with a temporary ID and password at the email address you provided. 4. Next choose a user name and password. Your user name must be at least 4 characters long and your password must be at least 4 characters long. 5. Choose a security question from the list and provide your answer to the question. If you already have signed into the Health Portal you may access your Health Care Information 04/06 by the following steps: 1. Login to our website @ [email or web address] 2. Enter your original user name and password. FAQS The [facility] Health Portal is an online tool that contains your Lab Results, Radiology Reports, Visit History, Discharge Instructions and Health Summary Lab and Radiology Results will not be available for 72 hours on the portal. The Portal is a secure site, passwords are encryted and URLs are re-written so they cannot be copied and pasted. You and authorized family members are the only ones who can access your Portal. Also there is a timeout feature that protects your information if you leave the Portal page open. If you have technical difficulty please use the Contact Us link on the page this will allow you to submit any questions you have regarding the Portal or you may contact the Medical Record Department at [phone] ext [phone]. Prescriptions: Ciprofloxacin [Cipro 500 MG] 500 mg PO BIDAC #14 tablet Ondansetron ODT 4 MG [Zofran Odt 4 mg] 4 mg PO Q6H PRN PRN #10 tablet PRN Reason: Nausea/Vomiting
[2024-08-30] MEDS: Sodium Chloride 0.9% 1000 ML 1,000 ML IV STA (15:42)
[2024-08-30] MEDS: Zofran 4 MG/2 ML VIAL IV ONE (15:46)
[2024-08-30] MEDS: TORAdol 30 mg Injection IV ONE (15:48)
[2024-08-30] MEDS: MORPHINE SULFATE 4 MG INJ IV ONE (15:49)
[2024-08-30 15:51] LABS: Absolute Neutrophil Ct (ANC) 13.27 x10^3/uL (1.56-6.13); BASOPHIL % 0.3 % (0.1-1.2); Basophil (Absolute #) 0.05 x10^3/uL (0.01-0.08); Eosinophil % 0.7 % (0.7-5.8); Eosinophil (Absolute #) 0.11 x10^3/uL (0.04-0.36); Hemoglobin 14.1 g/dL (11.2-15.7); IMMATURE GRAN # 0.08 x10^3u/L (0.001-0.031); IMMATURE GRAN % 0.5 % (0.001-0.429); Lymphocyte (Absolute #) 1.75 x10^3/uL (1.18-3.74); Lymphocytes % 10.8 % (19.3-51.7); Mean Corpuscular Hemoglobin 29.9 pg (25.6-32.2); Mean Corpuscular Hgb Concent. 33.6 g/dL (32.2-35.5); Mean Platelet Volume 10.1 fL (9.4-12.3); Monocyte (Absolute #) 0.88 x10^3/uL (0.24-0.86); Monocytes % 5.5 % (4.7-12.5); Neutrophil % 82.2 % (34.0-71.1); Platelet Count 344 x10^3/uL (182-369); Red Blood Count 4.72 x10^6/uL (3.93-5.22); Red Cell Distribution Width 12.4 % (11.7-14.4); White Blood Count 16.1 x10^3/uL (3.98-10.04)
[2024-08-30 16:03] LABS: HCG SERUM TEST NEGATIVE (NEGATIVE)
[2024-08-30 16:05] LABS: ALBUMIN 4.3 g/dL (3.5-5.0); ANION GAP 14.1 MEQ/L (5-15); BILIRUBIN,TOTAL 0.8 mg/dL (0.2-1.3); Creatinine 1 0.94 mg/dL (0.52-1.04); EST GLOMERULAR FILTRATION RATE 81.2 ML/MIN; Potassium 3.7 mmol/L (3.5-5.1); Total Protein 7.7 g/dL (6.3-8.2)
[2024-08-30] MEDS ORDERED: ROCEPHIN 1 GM / 100 ML NaCl 1 GM/100 ML IVPB IV ONE (16:30)
[2024-08-30] MEDS: ROCEPHIN 1 GM / 100 ML NaCl 1 GM/100 ML IVPB IV ONE (16:32)
--- NOTE | 2024-08-30 17:08 | XRAY ---
CLINICAL HISTORY: left lower abdominal pain COMPARISON: No prior studies are available for comparison. TECHNIQUE: CT of the abdomen and pelvis was performed with contrast 80 cc Isovue 370, with the following protocol: axial images with, and reconstructed coronal and sagittal images. One of the following dose reduction techniques was utilized for this exam: Automated exposure control, adjustment of the mA and/or kV according to patient size, and use of iterative reconstruction. FINDINGS: Abdomen: Liver: Normal in size, shape, and density. No focal lesions, cysts, or masses were identified. Hepatic vasculature and biliary ducts are unremarkable. Gallbladder and Biliary System: The gallbladder is normal in size and shape. No wall thickening, pericholecystic fluid, or gallstones were identified. The common bile duct is normal in caliber without dilation. Pancreas: Pancreatic head, body, and tail are visualized and appear normal in size and density. No pancreatic masses or calcifications were noted. The pancreatic duct is not dilated. Spleen: Normal in size, shape, and density. No splenic lesions or masses were identified. Kidneys and Adrenal Glands: Both kidneys are normal in size, shape, and position. Cortical thickness is within normal limits. No renal calculi or hydronephrosis. Adrenal glands are unremarkable with no evidence of masses or hyperplasia. Pelvis: Urinary Bladder: Normal in contour and wall thickness. No intraluminal lesions identified. Uterus: Normal in size and contour. No masses or abnormal thickening. Ovaries: Normal size and outlines, the right ovary show a 1.5x1.8 cm, follicular cyst. Vagina: Normal in contour and wall thickness. Cervix: No evidence of mass or abnormal thickening. Peritoneal and Retroperitoneal Structures: No free fluid or abnormal fluid collections were identified within the abdomen or pelvis. No lymphadenopathy was noted. The appendix appears normal. Bowel: The visualized bowel loops are normal in caliber and appearance. No evidence of bowel obstruction or wall thickening. Bones and Soft Tissues: Pelvic bones and soft tissues are unremarkable. No fractures or abnormal masses were identified. Left iliac bone sclerotic lesion noted suggesting bone island. IMPRESSION: 1. Overall, CT with contrast of abdomen and pelvis demonstrates normal findings without evidence of acute intra-abdominal pathology. 2. Clinical correlation is recommended for further evaluation. Electronically Signed by: Sherrill Oliver MD. (08/30/2024 17:04:26 EDT)
[2024-08-30 17:27] VITALS: BP 118/88; PULSE 68; RESP 16
[2024-08-30 18:06] LABS: Appearance Clear (Clear); Bacteria None Seen /HPF (None Seen); Bilirubin Negative (Negative); Blood Trace (Negative); Glucose, Urine Negative (Negative); Hyaline Casts NONE SEEN /LPF (0-2); Ketones 15 (Negative); Leukocyte Esterase Negative (Negative); Nitrite Negative (Negative); Ph 5.5 (4.6-8.0); Protein,Urine Dip Trace (Negative); Specific Gravity >=1.030 (1.005-1.030); Urobilinogen 0.2 mg/dL (0.2); WBC 0-2 /HPF (0-5)
[2024-08-30 18:07] LABS: Epithelial Cells Few /HPF (None Seen); RBC 0-2 /HPF (0-5)
== END 2024-08-30 17:29 | disposition home or self-care (01) ==
LOC: ED 14:57
DX: R10.32 Left lower quadrant pain (principal); R11.0 Nausea; Z79.899 Other long term (current) drug therapy
CPT/HCPCS: 36000; 36415; 74177; 80053; 81001; 82150; 84703; 85025; 96360; 96365; 96374; 96375; 99284; J0696; J1885; J2270; J2405

== ENCOUNTER 2024-09-02 10:40 | Observation (INO) | payer BC ==
[2024-09-02 13:39] LABS: Absolute Neutrophil Ct (ANC) 5.39 x10^3/uL (1.56-6.13); BASOPHIL % 0.5 % (0.1-1.2); Basophil (Absolute #) 0.04 x10^3/uL (0.01-0.08); Eosinophil % 1.5 % (0.7-5.8); Eosinophil (Absolute #) 0.12 x10^3/uL (0.04-0.36); Hemoglobin 12.7 g/dL (11.2-15.7); IMMATURE GRAN # 0.02 x10^3u/L (0.001-0.031); IMMATURE GRAN % 0.2 % (0.001-0.429); Lymphocyte (Absolute #) 1.99 x10^3/uL (1.18-3.74); Lymphocytes % 24.7 % (19.3-51.7); Mean Cell Volume 88.4 fL (79.4-94.8); Mean Corpuscular Hemoglobin 29.5 pg (25.6-32.2); Mean Corpuscular Hgb Concent. 33.4 g/dL (32.2-35.5); Mean Platelet Volume 10.6 fL (9.4-12.3); Monocyte (Absolute #) 0.49 x10^3/uL (0.24-0.86); Monocytes % 6.1 % (4.7-12.5); Platelet Count 323 x10^3/uL (182-369); Red Cell Distribution Width 12.8 % (11.7-14.4); White Blood Count 8.1 x10^3/uL (3.98-10.04)
[2024-09-02] MEDS ORDERED: Sodium Chloride 0.9% 1000 ML 1,000 ML ONE ×2 (13:43→18:29)
[2024-09-02] MEDS ORDERED: Zofran 4 MG/2 ML VIAL ONE ×2 (13:43→19:16)
[2024-09-02] MEDS ORDERED: TORAdol 30 mg Injection ONE ×2 (13:43→19:16)
[2024-09-02] MEDS: Sodium Chloride 0.9% 1000 ML 1,000 ML IV SCH (13:45)
[2024-09-02] MEDS: TORAdol 30 mg Injection IV ONE (13:46)
[2024-09-02] MEDS: Zofran 4 MG/2 ML VIAL IV ONE (13:46)
[2024-09-02 14:06] LABS: ANION GAP 14.9 MEQ/L (5-15); BILIRUBIN,TOTAL 0.9 mg/dL (0.2-1.3); Calcium 9.2 mg/dL (8.4-10.2); Creatinine 1 1.04 mg/dL (0.52-1.04); EST GLOMERULAR FILTRATION RATE 71.9 ML/MIN; Potassium 3.7 mmol/L (3.5-5.1); Total Protein 6.9 g/dL (6.3-8.2)
--- NOTE | 2024-09-02 14:20 | XRAY ---
Indication: Pain 1 week. Multiple contiguous axial images obtained through the abdomen and pelvis using 80 cc Isovue 370 contrast. Comparison: August 30, 2024 Lung bases remain clear. Heart not enlarged. Noncontrasted stomach and bowel loops appear nonobstructed. Appendix prominent up to 1.3 cm diameter with now wall enhancement and minimal periappendiceal stranding favoring mild/early appendicitis. No free fluid/air. Remaining liver, gallbladder, pancreas, spleen, adrenal glands, kidneys, ureters, bladder, uterus, and aorta are unremarkable. No pathologic retroperitoneal lymphadenopathy. Impression: Again prominent appendix with now wall enhancement and minimal periappendiceal stranding favoring mild/early appendicitis.
[2024-09-02 14:29] LABS: Appearance Clear (Clear); Bacteria None Seen /HPF (None Seen); Bilirubin Negative (Negative); Blood Negative (Negative); Epithelial Cells Few /HPF (None Seen); Glucose, Urine Negative (Negative); Hyaline Casts NONE SEEN /LPF (0-2); Ketones 15 (Negative); Leukocyte Esterase Negative (Negative); Nitrite Negative (Negative); Protein,Urine Dip Negative (Negative); Specific Gravity >=1.030 (1.005-1.030); Urobilinogen 0.2 mg/dL (0.2); WBC 0-2 /HPF (0-5)
[2024-09-02 14:45] LABS: RBC 0-2 /HPF (0-5)
[2024-09-02 14:46] LABS: Budding Yeast Few /HPF (None Seen)
--- NOTE | 2024-09-02 15:02 | XRAY ---
Indication: Pain. Torsion. Two-dimensional transvaginal pelvic sonogram performed. Comparison: August 24, 2015 Uterus again anteverted measuring 8.6 x 4.4 x 5.4 cm. Lower uterine segment demonstrates at least 2 tiny nabothian cysts, largest 3 mm. Endometrial stripe measures 1 cm. Endometrial cavity now demonstrates 1.2 x 0.5 cm lower uterine endometrial echogenic mass with petechial color Doppler flow, possible polyp. Right ovary measures 3.8 x 2.4 x 3.5 cm and left measures 3.4 x 2.1 x 2.3 cm. Normal follicular cysts and perfusion bilaterally. Right ovary demonstrates 2.2 cm dominant cyst. No suspicious adnexal mass or free fluid. Impression: 1. New endometrial cavity echogenic mass with petechial color flow as detailed, possible polyp. 2. Incidental tiny nabothian cysts. 3. Remaining transvaginal pelvic sonogram is negative.
--- NOTE | 2024-09-02 16:09 | ERPHSYRPT ---
- History of Present Illness Time Seen by Provider: 09/02/24 14:30 Source: patient Exam Limitations: no limitations Patient Subjective Stated Complaint: Abdominal/Pelvic pain Triage Nursing Assessment: Patient ambulated back to ED and transferred self to bed. Patient A+O X 3. Patient's skin pink, warm and dry. Patient complains of abdominal/pelvic pain 6/10 since last week. Patient was seen on 08/30/[address] scan. Patient still having pain in pelvic area 610 intermittent sharp pains like "contractions" she states. Patient also complains of N/V. Physician History: 34-year-old female presents to our ED for the second time since Sunday for evaluation of pain to her lower abdomen. Patient was in our ED on Sunday and completely evaluated. CT scan was essentially nonremarkable. Since Sunday h er pain has gotten progressively worse. No trauma no fever. Patient states her pain is lower abdomen and pelvic region. Patient admits to recent bout of nausea vomiting and diarrhea. No bloody stool. No hematuria or dysuria frequency or urgency. Patient otherwise feels well. She voices no other complaints or concerns at this time. Portions of this note were created with voice recognition technology. There may be grammatical, spelling, punctuation or sound alike errors Timing/Duration: day(s) Severity: moderate Modifying Factors: Improves With: nothing Associated Symptoms: nausea, vomiting, abdominal pain, other (Diarrhea) Allergies/Adverse Reactions: acetaminophen [From Percocet] Allergy (Intermediate, Verified 09/02/24 12:00) hives and itch oxycodone [From Percocet] Allergy (Intermediate, Verified 09/02/24 12:00) hives and itch Home Medications: Gabapentin 100 mg PO TID 02/23/16 [History] Duloxetine HCl 30 mg [Cymbalta 30 MG Capsule] 30 mg PO DAILY 08/30/24 [History] Fluoxetine HCl 10 mg [Prozac 10 mg] 10 mg PO DAILY 08/30/24 [History] Ropinirole HCl 0.5 mg [Requip 0.5 MG] 0.25 mg PO DAILY 08/30/24 [History] Hx Tetanus, Diphtheria Vaccination/Date Given: Yes Hx Influenza Vaccination/Date Given: No Hx Pneumococcal Vaccination/Date Given: No Immunizations Up to Date: Yes Travel Risk - International Travel Have you traveled outside of the country in past 3 weeks: No - Emerging Infectious Disease Are you exhibiting symptoms associated with any current EIDs: No Symptoms: Abdominal Pain - Review of Systems Constitutional: No Symptoms, No Fever, No Chills Eyes: No Symptoms Ears, Nose, & Throat: No Symptoms Respiratory: No Symptoms, No Cough, No Dyspnea Cardiac: No Symptoms, No Chest Pain, No Edema, No Syncope Abdominal/Gastrointestinal: No Symptoms, No Abdominal Pain, No Nausea, No Vomiting, No Diarrhea Genitourinary Symptoms: No Symptoms, No Dysuria Musculoskeletal: No Symptoms, No Back Pain, No Neck Pain Skin: No Symptoms, No Rash Neurological: No Symptoms, No Dizziness, No Focal Weakness, No Sensory Changes Psychological: No Symptoms Endocrine: No Symptoms Hematologic/Lymphatic: No Symptoms Immunological/Allergic: No Symptoms All Other Systems: Reviewed and Negative - Past Medical History Pertinent Past Medical History: Yes Neurological History: No Pertinent History ENT History: No Pertinent History Cardiac History: No Pertinent History Respiratory History: No Pertinent History Endocrine Medical History: No Pertinent History, Hypothyroidism Musculoskeletal History: Degenerative Disk Disease, Osteoarthritis GI Medical History: No Pertinent History History: No Pertinent History Psycho-Social History: Anxiety, Depression Female Reproductive Disorders: No Pertinent History Other Medical History: SX HX: TUBAL LIGATION AND NINE OUTPATIENT PROCEDURES FOR INJECTIONS AND LAST TWO WERE ABLATIONS. MOST RECENTLY IN SEPTEMBER WITH SOME DEC REASE IN LOWER LUMBAR REGION. - Past Surgical History Past Surgical History: Yes Musculoskeletal: Other Female Surgical History: Tubal Ligation Other Surgical History: injections at [facility] - Female History Hx Last Menstrual Period: Last week Hx Now: No - Social History Smoking Status: Former smoker How long have you smoked: 1/2 Exposure to second hand smoke: Yes Alcohol Use: None Drug Use: none Patient Lives Alone: No - Social Determinants of Health Will the patient participate in the screening: Declined to provide - Nursing Vital Signs Nursing Vital Signs: Initial Vital Signs Temperature 98.2 F 09/02/24 12:05 Pulse Rate 76 09/02/24 12:05 Respiratory Rate 20 09/02/24 12:05 Blood Pressure 123/61 09/02/24 12:05 O2 Sat by Pulse Oximetry 100 09/02/24 12:05 Pain Scale Pain Intensity 5 - Physical Exam General Appearance: no apparent distress, alert Eye Exam: PERRL/EOMI, eyes nml inspection Ears, Nose, Throat Exam: normal ENT inspection, TMs normal, pharynx normal, moist mucous membranes Neck Exam: normal inspection, non-tender, supple, full range of motion Respiratory Exam: normal breath sounds, lungs clear, No respiratory distress Cardiovascular Exam: regular rate/rhythm, normal heart sounds, normal peripheral pulses Gastrointestinal/Abdomen Exam: soft, normal bowel sounds, tenderness, other (Right lower quadrant tenderness), No mass Back Exam: normal inspection, normal range of motion, No CVA tenderness, No vertebral tenderness Extremity Exam: normal inspection, normal range of motion, pelvis stable Neurologic Exam: alert, oriented x 3, cooperative, normal mood/affect, sensation nml, No motor deficits Skin Exam: normal color, warm, dry, No rash Lymphatic Exam: No adenopathy SpO2 Interpretation: normal SpO2: 100 O2 Delivery: Room Air - Course Nursing assessment & vital signs reviewed: Yes - CT Exams Abdomen/Pelvis CT Interpretation: Tele-radiologist Report (Appendicitis) Ordered Tests: Active Orders 24 hr Category Date Time Status IV Insertion STAT Care 09/02/24 12:52 Active ABDOMEN AND PELVIS W CONTRAST [CT] Stat Exams 09/02/24 12:52 Completed PELVIS TRANS VAGINAL [US] Stat Exams 09/02/24 12:54 Completed CBC W DIFF Stat Lab 09/02/24 13:15 Completed CMP Stat Lab 09/02/24 13:15 Completed CULTURE,URINE Stat Lab 09/02/24 13:48 Received LIPASE Stat Lab 09/02/24 13:15 Completed TROPONIN Q4H Lab 09/02/24 13:15 Completed TROPONIN Q4H Lab 09/02/24 16:36 Completed TROPONIN Q4H Lab 09/02/24 21:00 Ordered UA W/RFX UR CULTURE Stat Lab 09/02/24 13:48 Completed Transfer Order Routine Transfer 09/02/24 Ordered Medication Summary Generic Name Dose Route Start Last Admin Trade Name Freq PRN Reason Stop Dose Admin Sodium Chloride 1,000 mls @ 100 mls/hr 09/02/24 13:00 09/02/24 13:45 Sodium Chloride 0.9% 1000 Ml IV 10/02/24 12:59 100 mls/hr .Q10H PIPPA Administration Discontinued Medications Generic Name Dose Route Start Last Admin Trade Name Freq PRN Reason Stop Dose Admin Piperacillin Sod/Tazobactam 100 mls @ 200 mls/hr 09/02/24 16:08 09/02/24 16:17 Sod 3.375 gm/ Sodium Chloride IV 09/02/24 16:37 200 mls/hr STAT ONE Administration Sodium Chloride Confirm 09/02/24 16:16 Sodium Chloride 100ml Mini-Bag Plus Administered 09/02/24 16:17 Dose 100 mls @ ud IV .STK-MED ONE Ketorolac Tromethamine 30 mg 09/02/24 12:53 09/02/24 13:46 Ketorolac Tromethamine 30 Mg/Ml Inj IV 09/02/24 12:54 30 mg STAT ONE Administration Ketorolac Tromethamine Confirm 09/02/24 13:43 Ketorolac Tromethamine 30 Mg/Ml Inj Administered 09/02/24 13:44 Dose 30 mg .ROUTE .STK-MED ONE Morphine Sulfate 4 mg 09/02/24 17:42 09/02/24 17:51 Morphine Sulfate 4 Mg/Ml Injection IV 09/02/24 17:43 4 mg STAT ONE Administration Morphine Sulfate Confirm 09/02/24 17:48 Morphine Sulfate 4 Mg/Ml Injection Administered 09/02/24 17:49 Dose 4 mg .ROUTE .STK-MED ONE Ondansetron HCl 4 mg 09/02/24 12:52 09/02/24 13:46 Ondansetron Hcl 4 Mg/2 Ml Vial IV 09/02/24 12:53 4 mg STAT ONE Administration Ondansetron HCl Confirm 09/02/24 13:43 Ondansetron Hcl 4 Mg/2 Ml Vial Administered 09/02/24 13:44 Dose 4 mg .ROUTE .STK-MED ONE Piperacillin Sod/Tazobactam Sod Confirm 09/02/24 16:16 Piperacillin/Tazobactam Sodium 3.375 Gm Vial Administered 09/02/24 16:17 Dose 3.375 gm IV .STK-MED ONE Lab/Rad Data: Laboratory Result Diagrams 09/02/24 13:15 09/02/24 13:15 Laboratory Results 09/02/24 09/02/24 09/02/24 Range/Units 16:36 13:48 13:15 WBC (3.98-10.04) x10^3/uL RBC (3.93-5.22) x10^6/uL Hgb (11.2-15.7) g/dL Hct (34.1-44.9) % MCV (79.4-94.8) fL MCH (25.6-32.2) pg MCHC (32.2-35.5) g/dL RDW (11.7-14.4) % Plt Count (182-369) x10^3/uL MPV (9.4-12.3) fL Gran % (34.0-71.1) % Immature Gran % (Auto) (0.001-0.429) % Nucleat RBC Rel Count (0.00-0.2) % Eos # (Auto) (0.04-0.36) x10^3/uL Immature Gran # (Auto) (0.001-0.031) x10^3u/L Absolute Lymphs (auto) (1.18-3.74) x10^3/uL Absolute Monos (auto) (0.24-0.86) x10^3/uL Absolute Nucleated RBC (0.00-0.012) x10^3u/L Lymphocytes % (19.3-51.7) % Monocytes % (4.7-12.5) % Eosinophils % (0.7-5.8) % Basophils % (0.1-1.2) % Absolute Granulocytes (1.56-6.13) x10^3/uL Basophils # (0.01-0.08) x10^3/uL Sodium (135-145) mmol/L Potassium (3.5-5.1) mmol/L Chloride (98-107) mmol/L Carbon Dioxide (22-30) mmol/L Anion Gap (5-15) MEQ/L BUN (7-17) mg/dL Creatinine (0.52-1.04) mg/dL Estimated GFR ML/MIN Glucose (74-106) mg/dL Calcium (8.4-10.2) mg/dL Total Bilirubin (0.2-1.3) mg/dL AST (14-36) U/L ALT (0-35) U/L Alkaline Phosphatase (38-126) U/L Troponin I < 0.012 < 0.012 (0.000-0.033) ng/mL Serum Total Protein (6.3-8.2) g/dL Albumin (3.5-5.0) g/dL Lipase (23-300) U/L Urine Color Yellow (Yellow) Urine Appearance Clear (Clear) Urine pH 6.0 (4.6-8.0) Ur Specific [place] >=1.030 A (1.005-1.030) Urine Protein Negative (Negative) Urine Glucose (UA) Negative (Negative) mg/dL Urine Ketones 15 A (Negative) Urine Blood Negative (Negative) Urine Nitrite Negative (Negative) Urine Bilirubin Negative (Negative) Urine Urobilinogen 0.2 (0.2) mg/dL Ur Leukocyte Esterase Negative (Negative) U Hyaline Cast (Auto) NONE SEEN (0-2) /LPF Urine Microscopic RBC 0-2 (0-5) /HPF Urine Microscopic WBC 0-2 (0-5) /HPF Ur Epithelial Cells Few (None Seen) /HPF Urine Bacteria None Seen (None Seen) /HPF Urine Yeast (Budding) Few A (None Seen) /HPF Urine Culture Reflexed YES (NO) 09/02/24 09/02/24 Range/Units 13:15 13:15 WBC 8.1 (3.98-10.04) x10^3/uL RBC 4.30 (3.93-5.22) x10^6/uL Hgb 12.7 (11.2-15.7) g/dL Hct 38.0 (34.1-44.9) % MCV 88.4 (79.4-94.8) fL MCH 29.5 (25.6-32.2) pg MCHC 33.4 (32.2-35.5) g/dL RDW 12.8 (11.7-14.4) % Plt Count 323 (182-369) x10^3/uL MPV 10.6 (9.4-12.3) fL Gran % 67.0 (34.0-71.1) % Immature Gran % (Auto) 0.2 (0.001-0.429) % Nucleat RBC Rel Count 0.0 (0.00-0.2) % Eos # (Auto) 0.12 (0.04-0.36) x10^3/uL Immature Gran # (Auto) 0.02 (0.001-0.031) x10^3u/L Absolute Lymphs (auto) 1.99 (1.18-3.74) x10^3/uL Absolute Monos (auto) 0.49 (0.24-0.86) x10^3/uL Absolute Nucleated RBC 0.00 (0.00-0.012) x10^3u/L Lymphocytes % 24.7 (19.3-51.7) % Monocytes % 6.1 (4.7-12.5) % Eosinophils % 1.5 (0.7-5.8) % Basophils % 0.5 (0.1-1.2) % Absolute Granulocytes 5.39 (1.56-6.13) x10^3/uL Basophils # 0.04 (0.01-0.08) x10^3/uL Sodium 139 (135-145) mmol/L Potassium 3.7 (3.5-5.1) mmol/L Chloride 104 (98-107) mmol/L Carbon Dioxide 24 (22-30) mmol/L Anion Gap 14.9 (5-15) MEQ/L BUN 7 (7-17) mg/dL Creatinine 1.04 (0.52-1.04) mg/dL Estimated GFR 71.9 ML/MIN Glucose 80 (74-106) mg/dL Calcium 9.2 (8.4-10.2) mg/dL Total Bilirubin 0.90 (0.2-1.3) mg/dL AST 19 (14-36) U/L ALT 12 (0-35) U/L Alkaline Phosphatase 79 (38-126) U/L Troponin I (0.000-0.033) ng/mL Serum Total Protein 6.9 (6.3-8.2) g/dL Albumin 4.0 (3.5-5.0) g/dL Lipase 52 (23-300) U/L Urine Color (Yellow) Urine Appearance (Clear) Urine pH (4.6-8.0) Ur Specific [place] (1.005-1.030) Urine Protein (Negative) Urine Glucose (UA) (Negative) mg/dL Urine Ketones (Negative) Urine Blood (Negative) Urine Nitrite (Negative) Urine Bilirubin (Negative) Urine Urobilinogen (0.2) mg/dL Ur Leukocyte Esterase (Negative) U Hyaline Cast (Auto) (0-2) /LPF Urine Microscopic RBC (0-5) /HPF Urine Microscopic WBC (0-5) /HPF Ur Epithelial Cells (None Seen) /HPF Urine Bacteria (None Seen) /HPF Urine Yeast (Budding) (None Seen) /HPF Urine Culture Reflexed (NO) - Progress Progress: improved Progress Note: 34-year-old female presents to emergency department for evaluation of lower abdominal pain. Physical exam reveals tenderness to palpation of McBurney's point. Overlying soft tissue intact. CT confirms an appendicitis. Laboratory workup essentially nonremarkable. Vital stable. Time spent admit patient approximately 20 minutes. Case discussed with Dr. Abbe Hercules who accepts the case. I spoke to Dr. Hercules at approximately 6:20 PM. Case discussed with hospitalist Dr. aMrtinez who accepts admission at 6:24 PM. Plan of care discussed with patient. She agrees to admission at [facility] for further evaluation and treatment. Patient is NPO. Her last meal was over 6 hours ago. Antibiotics infused. Pain well-controlled at this time. IV fluids infusing. Patient voices no other complaints or concerns at this time. Portions of this note were created with voice recognition technology. There may be grammatical, spelling, punctuation or sound alike errors Complexity problem addressed is moderate acute complicated. No critical care time. Complex of data reviewed and analyzed is extensive. Test ordered chest reviewed results analyzed and correlated clinically with history and physical exam. Management discussed with hospitalist and general surgeon. Risk of complication and or risk of morbidity/mortality of patient management is high. Patient requires hospitalization for further evaluation and treatment. Vital stable. Time spent admit patient approximately 20 minutes. Plan of care established for shared decision making. No social determinants felt present to impede follow-up. Portions of this note were created with voice recognition technology. There may be grammatical, spelling, punctuation or sound alike errors 09/02/24 18:34 Counseled pt/family regarding: lab results, diagnosis, need for follow-up, rad results - Departure Departure Disposition: Home Clinical Impression: Nabothian cyst, Uterine polyp, Appendicitis Condition: Stable Critical Care Time: No Referrals: YESSENIA HUGHES, H[employer] COMPENSATION ANALYST [Primary Care Provider] - Follow up/PCP as directed
[2024-09-02] MEDS ORDERED: PIPERACILLIN/TAZOBACTAM IV ONE (16:16)
[2024-09-02] MEDS ORDERED: Sodium Chloride 100ML MINI-BAG PLUS 100 ML IV ONE (16:16)
[2024-09-02] MEDS: PIPERACILLIN/TAZOBACTAM 3.375 GM in Sodium Chloride 100ML MINI-BAG PLUS 100 ML IV ONE (16:17)
[2024-09-02] MEDS ORDERED: MORPHINE SULFATE 4 MG INJ ONE (17:48)
[2024-09-02] MEDS: MORPHINE SULFATE 4 MG INJ IV ONE (17:51)
[2024-09-02] MEDS ORDERED: Sensorcaine 0.25% 10 ML ONE (18:29)
[2024-09-02] MEDS ORDERED: Lactated Ringers 1,000 ML IV ONE (19:05)
[2024-09-02] MEDS: Lactated Ringers 1,000 ML IV SCH (19:06)
[2024-09-02 19:14] LABS: HCG SERUM TEST NEGATIVE (NEGATIVE)
[2024-09-02] MEDS ORDERED: Xylocaine-Mpf 2% 5 Ml Vial ONE (19:16)
[2024-09-02] MEDS ORDERED: BRIDION 200MG/2ML IV ONE (19:16)
[2024-09-02] MEDS ORDERED: DIPRIVAN 200 MG/20 ML IV ONE (19:16)
[2024-09-02] MEDS ORDERED: Decadron 4 MG INJ ONE (19:16)
[2024-09-02] MEDS ORDERED: ROCURONIUM BROMIDE IV ONE (19:16)
[2024-09-02] MEDS ORDERED: SUBLIMAZE 100 MCG/2 ML ONE ×2 (19:16→20:30)
[2024-09-02] MEDS ORDERED: KEFZOL 1 GM ONE (19:43)
[2024-09-02] MEDS ORDERED: Hydromorphone 1 mg/ml Injection ONE (20:22)
[2024-09-02] MEDS ORDERED: Compazine 10 MG/2 ML ONE (20:38)
[2024-09-02] MEDS ORDERED: ZOFRAN ODT 4 MG PO PRN (21:56)
[2024-09-02] MEDS ORDERED: Zanaflex 4 MG PO PRN (21:56)
[2024-09-02] MEDS: MEFOXIN 2 GM PREMIX** 2 GM/50 ML ML IV SCH (22:45)
[2024-09-02] MEDS: PROZAC 10 MG PO SCH (22:45)
[2024-09-02] MEDS: Dextrose 5% -0.45 NaCl 1000 ML 1,000 ML IV SCH (22:45)
[2024-09-02] MEDS: Neurontin PO SCH (22:45)
--- NOTE | 2024-09-03 00:16 | PCM.HP ---
History of Present Illness - Chief Complaint Chief Complaint: Appendicitis History of Present Illness: is a 34 year old female who presented to the ED with lower ongoing abdominal pain and found to have appendicitis and underwent an appendectomy and is now here post-op. Upon my exam, patient reports minimal pain, no fevers, no chest pain, no shortness of breath. Denies any other issues. - Review of Systems Constitutional: No Fever, No Chills Eyes: No Symptoms Ears, Nose, & Throat: No Symptoms Respiratory: No Cough, No Short Of Breath Cardiac: No Chest Pain, No Edema, No Syncope Abdominal/Gastrointestinal: No Abdominal Pain, No Nausea, No Vomiting, No Diarrhea Genitourinary Symptoms: No Dysuria Musculoskeletal: No Back Pain, No Neck Pain Skin: No Rash Neurological: No Dizziness, No Focal Weakness, No Sensory Changes Psychological: No Symptoms Endocrine: No Symptoms Hematologic/Lymphatic: No Symptoms Immunological/Allergic: No Symptoms Medications & Allergies Home Medications: Home Medication List Tizanidine HCl 4 mg [Zanaflex 4 MG] 4 mg PO BID PRN PRN #14 tablet 12/16/22 [Rx Confirmed 09/02/24] Ciprofloxacin [Cipro 500 MG] 500 mg PO BIDAC #14 tablet 08/30/24 [Rx Confirmed 09/02/24] Duloxetine HCl 30 mg [Cymbalta 30 MG Capsule] 30 mg PO DAILY 08/30/24 [History Confirmed 09/02/24] Fluoxetine HCl 10 mg [Prozac 10 mg] 10 mg PO HS 08/30/24 [History Confirmed 09/02/24] Ondansetron ODT 4 MG [Zofran Odt 4 mg] 4 mg PO Q6H PRN PRN #10 tablet 08/30/24 [Rx Confirmed 09/02/24] Ropinirole HCl 0.5 mg [Requip 0.5 MG] 0.25 mg PO DAILY 08/30/24 [History Confirmed 09/02/24] Gabapentin [Neurontin ] 600 mg PO TID 09/02/24 [History Confirmed 09/02/24] Allergies/Adverse Reactions: Allergies Allergy/AdvReac Type Severity Reaction Status Date / Time acetaminophen [From Percocet] Allergy Intermediate hives and Verified 09/02/24 12:00 itch oxycodone [From Percocet] Allergy Intermediate hives and Verified 09/02/24 12:00 itch - Past Medical History Past Medical History: Yes Neurological History: Migraines ENT History: No Pertinent History Cardiac History: No Pertinent History Respiratory History: No Pertinent History Endocrine Medical History: Hypothyroidism Musculoskelatal History: Degenerative Disk Disease, Osteoarthritis GI Medical History: No Pertinent History History: No Pertinent History Pyscho-Social History: Anxiety, Depression Reproductive Disorders: No Pertinent History Comment: SX HX: TUBAL LIGATION AND NINE OUTPATIENT PROCEDURES FOR INJECTIONS AND LAST TWO WERE ABLATIONS. MOST RECENTLY IN SEPTEMBER WITH SOME DECREASE IN LOWER LUMBAR REGION. - Female History Are you now?: No - Past Surgical History Past Surgical History: Yes Neuro Surgical History: No Pertinent History Cardiac History: No Pertinent History Respiratory Surgery: No Pertinent History GI Surgical History: No Pertinent History Genitourinary Surgical Hx: No Pertinent History Musculskeletal Surgical Hx: Other Female Surgical History: Tubal Ligation Other Surgical History: injections at pain clinic - Social History Smoking Status: Former smoker How long have you smoked: 1/2 Exposure to second hand smoke: Yes Alcohol: None Drug Use: none - Social Determinants of Health Will the patient participate in the screening: Yes Do you worry about a steady place to live?: No Do you have any problems with any of the following?: No known problems In the past 12 months,have you had to go without utilities?: No Have you or anyone in your house had to go without enough: No Transportation Issues: No Has anyone in your support network made you feel unsafe?: No Does the patient want assistance with any of the above?: No - Physical Exam Vital Signs: Vital Signs - 24 hr Temp Pulse Resp BP Pulse Ox 09/02/24 21:02 96.9 F 77 16 116/57 98 09/02/24 18:42 98.2 F 76 20 146/61 100 09/02/24 18:38 98.2 F 78 20 128/71 100 09/02/24 18:37 100 09/02/24 17:41 72 20 128/71 100 09/02/24 16:36 77 18 110/68 100 09/02/24 14:00 68 18 108/62 98 09/02/24 13:52 74 20 117/60 100 09/02/24 13:00 70 20 120/60 100 09/02/24 12:05 98.2 F 76 20 123/61 100 General Appearance: no apparent distress, alert Neurologic Exam: alert, oriented x 3, cooperative, normal mood/affect, nml cerebellar function, nml station & gait, sensation nml, No motor deficits Eye Exam: PERRL/EOMI, eyes nml inspection Ears, Nose, Throat Exam: normal ENT inspection, TMs normal, pharynx normal, moist mucous membranes Neck Exam: normal inspection, non-tender, supple, full range of motion Respiratory Exam: normal breath sounds, lungs clear, No respiratory distress Cardiovascular Exam: regular rate/rhythm, normal heart sounds, normal peripheral pulses Gastrointestinal/Abdomen Exam: soft, normal bowel sounds, No tenderness, No mass Back Exam: normal inspection, normal range of motion, No CVA tenderness, No vertebral tenderness Extremity Exam: normal inspection, normal range of motion, pelvis stable Skin Exam: normal color, warm, dry, No rash Lymphatic Exam: No adenopathy Results - Labs Lab/Micro Results: Lab Results-Last 24 Hours 09/02/24 09/02/24 09/02/24 Range/Units 13:15 13:15 13:15 WBC 8.1 (3.98-10.04) x10^3/uL RBC 4.30 (3.93-5.22) x10^6/uL Hgb 12.7 (11.2-15.7) g/dL Hct 38.0 (34.1-44.9) % MCV 88.4 (79.4-94.8) fL MCH 29.5 (25.6-32.2) pg MCHC 33.4 (32.2-35.5) g/dL RDW 12.8 (11.7-14.4) % Plt Count 323 (182-369) x10^3/uL MPV 10.6 (9.4-12.3) fL Gran % 67.0 (34.0-71.1) % Immature Gran % (Auto) 0.2 (0.001-0.429) % Nucleat RBC Rel Count 0.0 (0.00-0.2) % Eos # (Auto) 0.12 (0.04-0.36) x10^3/uL Immature Gran # (Auto) 0.02 (0.001-0.031) x10^3u/L Absolute Lymphs (auto) 1.99 (1.18-3.74) x10^3/uL Absolute Monos (auto) 0.49 (0.24-0.86) x10^3/uL Absolute Nucleated RBC 0.00 (0.00-0.012) x10^3u/L Lymphocytes % 24.7 (19.3-51.7) % Monocytes % 6.1 (4.7-12.5) % Eosinophils % 1.5 (0.7-5.8) % Basophils % 0.5 (0.1-1.2) % Absolute Granulocytes 5.39 (1.56-6.13) x10^3/uL Basophils # 0.04 (0.01-0.08) x10^3/uL Sodium 139 (135-145) mmol/L Potassium 3.7 (3.5-5.1) mmol/L Chloride 104 (98-107) mmol/L Carbon Dioxide 24 (22-30) mmol/L Anion Gap 14.9 (5-15) MEQ/L BUN 7 (7-17) mg/dL Creatinine 1.04 (0.52-1.04) mg/dL Estimated GFR 71.9 ML/MIN Glucose 80 (74-106) mg/dL Calcium 9.2 (8.4-10.2) mg/dL Total Bilirubin 0.90 (0.2-1.3) mg/dL AST 19 (14-36) U/L ALT 12 (0-35) U/L Alkaline Phosphatase 79 (38-126) U/L Troponin I < 0.012 (0.000-0.033) ng/mL Serum Total Protein 6.9 (6.3-8.2) g/dL Albumin 4.0 (3.5-5.0) g/dL Prealbumin (17.6-36.0) mg/dL Lipase 52 (23-300) U/L Serum HCG, Qual (NEGATIVE) Urine Color (Yellow) Urine Appearance (Clear) Urine pH (4.6-8.0) Ur Specific [place] (1.005-1.030) Urine Protein (Negative) Urine Glucose (UA) (Negative) mg/dL Urine Ketones (Negative) Urine Blood (Negative) Urine Nitrite (Negative) Urine Bilirubin (Negative) Urine Urobilinogen (0.2) mg/dL Ur Leukocyte Esterase (Negative) U Hyaline Cast (Auto) (0-2) /LPF Urine Microscopic RBC (0-5) /HPF Urine Microscopic WBC (0-5) /HPF Ur Epithelial Cells (None Seen) /HPF Urine Bacteria (None Seen) /HPF Urine Yeast (Budding) (None Seen) /HPF Urine Culture Reflexed (NO) 09/02/24 09/02/24 09/02/24 Range/Units 13:15 13:48 16:36 WBC (3.98-10.04) x10^3/uL RBC (3.93-5.22) x10^6/uL Hgb (11.2-15.7) g/dL Hct (34.1-44.9) % MCV (79.4-94.8) fL MCH (25.6-32.2) pg MCHC (32.2-35.5) g/dL RDW (11.7-14.4) % Plt Count (182-369) x10^3/uL MPV (9.4-12.3) fL Gran % (34.0-71.1) % Immature Gran % (Auto) (0.001-0.429) % Nucleat RBC Rel Count (0.00-0.2) % Eos # (Auto) (0.04-0.36) x10^3/uL Immature Gran # (Auto) (0.001-0.031) x10^3u/L Absolute Lymphs (auto) (1.18-3.74) x10^3/uL Absolute Monos (auto) (0.24-0.86) x10^3/uL Absolute Nucleated RBC (0.00-0.012) x10^3u/L Lymphocytes % (19.3-51.7) % Monocytes % (4.7-12.5) % Eosinophils % (0.7-5.8) % Basophils % (0.1-1.2) % Absolute Granulocytes (1.56-6.13) x10^3/uL Basophils # (0.01-0.08) x10^3/uL Sodium (135-145) mmol/L Potassium (3.5-5.1) mmol/L Chloride (98-107) mmol/L Carbon Dioxide (22-30) mmol/L Anion Gap (5-15) MEQ/L BUN (7-17) mg/dL Creatinine (0.52-1.04) mg/dL Estimated GFR ML/MIN Glucose (74-106) mg/dL Calcium (8.4-10.2) mg/dL Total Bilirubin (0.2-1.3) mg/dL AST (14-36) U/L ALT (0-35) U/L Alkaline Phosphatase (38-126) U/L Troponin I < 0.012 (0.000-0.033) ng/mL Serum Total Protein (6.3-8.2) g/dL Albumin (3.5-5.0) g/dL Prealbumin (17.6-36.0) mg/dL Lipase (23-300) U/L Serum HCG, Qual NEGATIVE (NEGATIVE) Urine Color Yellow (Yellow) Urine Appearance Clear (Clear) Urine pH 6.0 (4.6-8.0) Ur Specific [place] >=1.030 A (1.005-1.030) Urine Protein Negative (Negative) Urine Glucose (UA) Negative (Negative) mg/dL Urine Ketones 15 A (Negative) Urine Blood Negative (Negative) Urine Nitrite Negative (Negative) Urine Bilirubin Negative (Negative) Urine Urobilinogen 0.2 (0.2) mg/dL Ur Leukocyte Esterase Negative (Negative) U Hyaline Cast (Auto) NONE SEEN (0-2) /LPF Urine Microscopic RBC 0-2 (0-5) /HPF Urine Microscopic WBC 0-2 (0-5) /HPF Ur Epithelial Cells Few (None Seen) /HPF Urine Bacteria None Seen (None Seen) /HPF Urine Yeast (Budding) Few A (None Seen) /HPF Urine Culture Reflexed YES (NO) 09/02/24 Range/Units 22:00 WBC (3.98-10.04) x10^3/uL RBC (3.93-5.22) x10^6/uL Hgb (11.2-15.7) g/dL Hct (34.1-44.9) % MCV (79.4-94.8) fL MCH (25.6-32.2) pg MCHC (32.2-35.5) g/dL RDW (11.7-14.4) % Plt Count (182-369) x10^3/uL MPV (9.4-12.3) fL Gran % (34.0-71.1) % Immature Gran % (Auto) (0.001-0.429) % Nucleat RBC Rel Count (0.00-0.2) % Eos # (Auto) (0.04-0.36) x10^3/uL Immature Gran # (Auto) (0.001-0.031) x10^3u/L Absolute Lymphs (auto) (1.18-3.74) x10^3/uL Absolute Monos (auto) (0.24-0.86) x10^3/uL Absolute Nucleated RBC (0.00-0.012) x10^3u/L Lymphocytes % (19.3-51.7) % Monocytes % (4.7-12.5) % Eosinophils % (0.7-5.8) % Basophils % (0.1-1.2) % Absolute Granulocytes (1.56-6.13) x10^3/uL Basophils # (0.01-0.08) x10^3/uL Sodium (135-145) mmol/L Potassium (3.5-5.1) mmol/L Chloride (98-107) mmol/L Carbon Dioxide (22-30) mmol/L Anion Gap (5-15) MEQ/L BUN (7-17) mg/dL Creatinine (0.52-1.04) mg/dL Estimated GFR ML/MIN Glucose (74-106) mg/dL Calcium (8.4-10.2) mg/dL Total Bilirubin (0.2-1.3) mg/dL AST (14-36) U/L ALT (0-35) U/L Alkaline Phosphatase (38-126) U/L Troponin I (0.000-0.033) ng/mL Serum Total Protein (6.3-8.2) g/dL Albumin (3.5-5.0) g/dL Prealbumin 8.94 L (17.6-36.0) mg/dL Lipase (23-300) U/L Serum HCG, Qual (NEGATIVE) Urine Color (Yellow) Urine Appearance (Clear) Urine pH (4.6-8.0) Ur Specific [place] (1.005-1.030) Urine Protein (Negative) Urine Glucose (UA) (Negative) mg/dL Urine Ketones (Negative) Urine Blood (Negative) Urine Nitrite (Negative) Urine Bilirubin (Negative) Urine Urobilinogen (0.2) mg/dL Ur Leukocyte Esterase (Negative) U Hyaline Cast (Auto) (0-2) /LPF Urine Microscopic RBC (0-5) /HPF Urine Microscopic WBC (0-5) /HPF Ur Epithelial Cells (None Seen) /HPF Urine Bacteria (None Seen) /HPF Urine Yeast (Budding) (None Seen) /HPF Urine Culture Reflexed (NO) - Radiology Impressions Radiology Exams & Impressions: Radiology Procedures Category Date Time Status ABDOMEN AND PELVIS W CONTRAST [CT] Stat Exams 09/02/24 12:52 Completed PELVIS TRANS VAGINAL [US] Stat Exams 09/02/24 12:54 Completed Assessment/Plan (1) Appendicitis Current Visit: Yes Status: Acute Assessment & Plan: 1. Status post appendectomy 2. Gradual PO intake 3. Pain control as needed (not in pain at the moment) Code(s): K37 - UNSPECIFIED APPENDICITIS Telemedicine Encounter - Telemedicine Encounter Telemedicine Encounter: "The entirety of this encounter was performed via Telemedicine" This visit was performed using real-time audio and video connection between my location and thepatients locationwith the assistance of a surrogateat the patients location. Written or verbal consent was obtained from the patient/guardian to perform this visit using[employer] Mobile[employer]medicine technology. Any patient questions regarding the telemedicine interaction were answered.
[2024-09-03 00:51] VITALS: RESP 16
[2024-09-03] MEDS: ULTRAM 50 MG PO PRN (02:58)
[2024-09-03] MEDS: NORCO 5/325 MG PO ONE (05:38)
[2024-09-03 05:42] LABS: Hematocrit 38.7 % (34.1-44.9); Hemoglobin 12.7 g/dL (11.2-15.7); Mean Cell Volume 89.8 fL (79.4-94.8); Mean Corpuscular Hemoglobin 29.5 pg (25.6-32.2); Mean Corpuscular Hgb Concent. 32.8 g/dL (32.2-35.5); Mean Platelet Volume 10.4 fL (9.4-12.3); Platelet Count 296 x10^3/uL (182-369); Red Blood Count 4.31 x10^6/uL (3.93-5.22); Red Cell Distribution Width 12.4 % (11.7-14.4); White Blood Count 7.4 x10^3/uL (3.98-10.04)
[2024-09-03 07:29] VITALS: BP 109/59; PULSE 76; TEMP 98; O2SAT 97
[2024-09-03] MEDS: DIFLUCAN PO ONE (08:42)
[2024-09-03] MEDS: Cymbalta 30 MG Capsule PO SCH (08:43)
[2024-09-03] MEDS: Requip 0.5 MG PO SCH (08:43)
--- NOTE | 2024-09-03 09:59 | PCM.DS ---
Discharge Summary Date of Admission: 09/02/24 20:58 Date of Discharge: 09/03/24 Admitting Physician: JEFFERSON HALL MD Consults: Consults on Case 09/02/24 21:04 Consult Surgery ROUTINE Primary Care Provider: YESSENIA HUGHES Allergies Allergies acetaminophen [From Percocet] Allergy (Intermediate, Verified 09/02/24 12:00) hives and itch oxycodone [From Percocet] Allergy (Intermediate, Verified 09/02/24 12:00) hives and itch Hospital Summary - Hospital Course Hospital Course: is a 34 year old female who presented to the ED with lower ongoing abdominal pain and found to have appendicitis and underwent an appendectomy and is now here post-op. Upon my exam, patient reports minimal pain, no fevers, no chest pain, no shortness of breath. Denies any other issues. Per GS she is ok to d/c today. She has no c/o at this time. GS sent in scripts for pt. - Vitals & Intake/Output Vital Signs: Vital Signs Temperature 98.0 F 09/03/24 07:27 Pulse Rate 76 09/03/24 07:27 Respiratory Rate 16 09/03/24 07:27 Blood Pressure 109/59 09/03/24 07:27 O2 Sat by Pulse Oximetry 97 09/03/24 07:27 Intake & Output: Intake & Output 08/31/24 09/01/24 09/02/24 09/03/24 11:59 11:59 11:59 11:59 Intake Total 2991 Balance 2991 Weight 80.739 kg - Lab Result Diagrams: 09/03/24 05:27 09/02/24 13:15 Lab Results-Last 24 Hrs: Lab Results-Last 24 Hours 09/02/24 09/02/24 09/02/24 Range/Units 13:15 13:15 13:15 WBC 8.1 (3.98-10.04) x10^3/uL RBC 4.30 (3.93-5.22) x10^6/uL Hgb 12.7 (11.2-15.7) g/dL Hct 38.0 (34.1-44.9) % MCV 88.4 (79.4-94.8) fL MCH 29.5 (25.6-32.2) pg MCHC 33.4 (32.2-35.5) g/dL RDW 12.8 (11.7-14.4) % Plt Count 323 (182-369) x10^3/uL MPV 10.6 (9.4-12.3) fL Gran % 67.0 (34.0-71.1) % Immature Gran % (Auto) 0.2 (0.001-0.429) % Nucleat RBC Rel Count 0.0 (0.00-0.2) % Eos # (Auto) 0.12 (0.04-0.36) x10^3/uL Immature Gran # (Auto) 0.02 (0.001-0.031) x10^3u/L Absolute Lymphs (auto) 1.99 (1.18-3.74) x10^3/uL Absolute Monos (auto) 0.49 (0.24-0.86) x10^3/uL Absolute Nucleated RBC 0.00 (0.00-0.012) x10^3u/L Lymphocytes % 24.7 (19.3-51.7) % Monocytes % 6.1 (4.7-12.5) % Eosinophils % 1.5 (0.7-5.8) % Basophils % 0.5 (0.1-1.2) % Absolute Granulocytes 5.39 (1.56-6.13) x10^3/uL Basophils # 0.04 (0.01-0.08) x10^3/uL Sodium 139 (135-145) mmol/L Potassium 3.7 (3.5-5.1) mmol/L Chloride 104 (98-107) mmol/L Carbon Dioxide 24 (22-30) mmol/L Anion Gap 14.9 (5-15) MEQ/L BUN 7 (7-17) mg/dL Creatinine 1.04 (0.52-1.04) mg/dL Estimated GFR 71.9 ML/MIN Glucose 80 (74-106) mg/dL Calcium 9.2 (8.4-10.2) mg/dL Total Bilirubin 0.90 (0.2-1.3) mg/dL AST 19 (14-36) U/L ALT 12 (0-35) U/L Alkaline Phosphatase 79 (38-126) U/L Troponin I < 0.012 (0.000-0.033) ng/mL Serum Total Protein 6.9 (6.3-8.2) g/dL Albumin 4.0 (3.5-5.0) g/dL Prealbumin (17.6-36.0) mg/dL Lipase 52 (23-300) U/L Serum HCG, Qual (NEGATIVE) Urine Color (Yellow) Urine Appearance (Clear) Urine pH (4.6-8.0) Ur Specific [place] (1.005-1.030) Urine Protein (Negative) Urine Glucose (UA) (Negative) mg/dL Urine Ketones (Negative) Urine Blood (Negative) Urine Nitrite (Negative) Urine Bilirubin (Negative) Urine Urobilinogen (0.2) mg/dL Ur Leukocyte Esterase (Negative) U Hyaline Cast (Auto) (0-2) /LPF Urine Microscopic RBC (0-5) /HPF Urine Microscopic WBC (0-5) /HPF Ur Epithelial Cells (None Seen) /HPF Urine Bacteria (None Seen) /HPF Urine Yeast (Budding) (None Seen) /HPF Urine Culture Reflexed (NO) 09/02/24 09/02/24 09/02/24 Range/Units 13:15 13:48 16:36 WBC (3.98-10.04) x10^3/uL RBC (3.93-5.22) x10^6/uL Hgb (11.2-15.7) g/dL Hct (34.1-44.9) % MCV (79.4-94.8) fL MCH (25.6-32.2) pg MCHC (32.2-35.5) g/dL RDW (11.7-14.4) % Plt Count (182-369) x10^3/uL MPV (9.4-12.3) fL Gran % (34.0-71.1) % Immature Gran % (Auto) (0.001-0.429) % Nucleat RBC Rel Count (0.00-0.2) % Eos # (Auto) (0.04-0.36) x10^3/uL Immature Gran # (Auto) (0.001-0.031) x10^3u/L Absolute Lymphs (auto) (1.18-3.74) x10^3/uL Absolute Monos (auto) (0.24-0.86) x10^3/uL Absolute Nucleated RBC (0.00-0.012) x10^3u/L Lymphocytes % (19.3-51.7) % Monocytes % (4.7-12.5) % Eosinophils % (0.7-5.8) % Basophils % (0.1-1.2) % Absolute Granulocytes (1.56-6.13) x10^3/uL Basophils # (0.01-0.08) x10^3/uL Sodium (135-145) mmol/L Potassium (3.5-5.1) mmol/L Chloride (98-107) mmol/L Carbon Dioxide (22-30) mmol/L Anion Gap (5-15) MEQ/L BUN (7-17) mg/dL Creatinine (0.52-1.04) mg/dL Estimated GFR ML/MIN Glucose (74-106) mg/dL Calcium (8.4-10.2) mg/dL Total Bilirubin (0.2-1.3) mg/dL AST (14-36) U/L ALT (0-35) U/L Alkaline Phosphatase (38-126) U/L Troponin I < 0.012 (0.000-0.033) ng/mL Serum Total Protein (6.3-8.2) g/dL Albumin (3.5-5.0) g/dL Prealbumin (17.6-36.0) mg/dL Lipase (23-300) U/L Serum HCG, Qual NEGATIVE (NEGATIVE) Urine Color Yellow (Yellow) Urine Appearance Clear (Clear) Urine pH 6.0 (4.6-8.0) Ur Specific [place] >=1.030 A (1.005-1.030) Urine Protein Negative (Negative) Urine Glucose (UA) Negative (Negative) mg/dL Urine Ketones 15 A (Negative) Urine Blood Negative (Negative) Urine Nitrite Negative (Negative) Urine Bilirubin Negative (Negative) Urine Urobilinogen 0.2 (0.2) mg/dL Ur Leukocyte Esterase Negative (Negative) U Hyaline Cast (Auto) NONE SEEN (0-2) /LPF Urine Microscopic RBC 0-2 (0-5) /HPF Urine Microscopic WBC 0-2 (0-5) /HPF Ur Epithelial Cells Few (None Seen) /HPF Urine Bacteria None Seen (None Seen) /HPF Urine Yeast (Budding) Few A (None Seen) /HPF Urine Culture Reflexed YES (NO) 09/02/24 09/03/24 Range/Units 22:00 05:27 WBC 7.4 (3.98-10.04) x10^3/uL RBC 4.31 (3.93-5.22) x10^6/uL Hgb 12.7 (11.2-15.7) g/dL Hct 38.7 (34.1-44.9) % MCV 89.8 (79.4-94.8) fL MCH 29.5 (25.6-32.2) pg MCHC 32.8 (32.2-35.5) g/dL RDW 12.4 (11.7-14.4) % Plt Count 296 (182-369) x10^3/uL MPV 10.4 (9.4-12.3) fL Gran % (34.0-71.1) % Immature Gran % (Auto) (0.001-0.429) % Nucleat RBC Rel Count (0.00-0.2) % Eos # (Auto) (0.04-0.36) x10^3/uL Immature Gran # (Auto) (0.001-0.031) x10^3u/L Absolute Lymphs (auto) (1.18-3.74) x10^3/uL Absolute Monos (auto) (0.24-0.86) x10^3/uL Absolute Nucleated RBC (0.00-0.012) x10^3u/L Lymphocytes % (19.3-51.7) % Monocytes % (4.7-12.5) % Eosinophils % (0.7-5.8) % Basophils % (0.1-1.2) % Absolute Granulocytes (1.56-6.13) x10^3/uL Basophils # (0.01-0.08) x10^3/uL Sodium (135-145) mmol/L Potassium (3.5-5.1) mmol/L Chloride (98-107) mmol/L Carbon Dioxide (22-30) mmol/L Anion Gap (5-15) MEQ/L BUN (7-17) mg/dL Creatinine (0.52-1.04) mg/dL Estimated GFR ML/MIN Glucose (74-106) mg/dL Calcium (8.4-10.2) mg/dL Total Bilirubin (0.2-1.3) mg/dL AST (14-36) U/L ALT (0-35) U/L Alkaline Phosphatase (38-126) U/L Troponin I (0.000-0.033) ng/mL Serum Total Protein (6.3-8.2) g/dL Albumin (3.5-5.0) g/dL Prealbumin 8.94 L (17.6-36.0) mg/dL Lipase (23-300) U/L Serum HCG, Qual (NEGATIVE) Urine Color (Yellow) Urine Appearance (Clear) Urine pH (4.6-8.0) Ur Specific [place] (1.005-1.030) Urine Protein (Negative) Urine Glucose (UA) (Negative) mg/dL Urine Ketones (Negative) Urine Blood (Negative) Urine Nitrite (Negative) Urine Bilirubin (Negative) Urine Urobilinogen (0.2) mg/dL Ur Leukocyte Esterase (Negative) U Hyaline Cast (Auto) (0-2) /LPF Urine Microscopic RBC (0-5) /HPF Urine Microscopic WBC (0-5) /HPF Ur Epithelial Cells (None Seen) /HPF Urine Bacteria (None Seen) /HPF Urine Yeast (Budding) (None Seen) /HPF Urine Culture Reflexed (NO) Micro Results-Entire Visit: Microbiology 09/02/24 13:48 Urine Culture - Preliminary Urine, Void NO GROWTH TO DATE - Radiology Exams Ordered Rad Exams-Entire Visit: Radiology Procedures Category Date Time Status ABDOMEN AND PELVIS W CONTRAST [CT] Stat Exams 09/02/24 12:52 Completed PELVIS TRANS VAGINAL [US] Stat Exams 09/02/24 12:54 Completed - Procedures and Test Procedures and Tests throughout Hospitalization: Therapy Orders & Screens 09/03/24 07:30 OT Screen per Nursing Assess ONCE Comment: Protocol Order Physician Instructions: Greater than 3 points order OT Admission Screening Reason For Exam: Triggered on Admission Diagnosis: Appendicitis Open Wound/Cellutlitis/Pressure Ulcers: Yes Acute Fx/ORIF/Change in wt bearing status: No Severe MUSCULOSKELETAL pain: No ADL Dysfunction: No Acute CVA w/Hemiparesis/Hemiplegia: No Decreased Functional Mobility/Strength: No Sprain/Strain: No Acute Post-op Mobility Dysfunction: No Total Points: 5 PT Screen per Nursing Assess ONCE Comment: Protocol Order Physician Instructions: Greater than 3 points order PT Admission Screenin Reason For Exam: Triggered on Admission Diagnosis: Appendicitis Open Wound/Cellutlitis/Pressure Ulcers: Yes Acute Fx/ORIF/Change in wt bearing status: No Severe MUSCULOSKELETAL pain: No ADL Dysfunction: No Acute CVA w/Hemiparesis/Hemiplegia: No Decreased Functional Mobility/Strength: No Sprain/Strain: No Acute Post-op Mobility Dysfunction: No Total Points: 5 Discharge Exam General Appearance: no apparent distress, alert Neurologic Exam: alert, oriented x 3, cooperative, normal mood/affect, nml cerebellar function, sensation nml, No motor deficits Eye Exam: PERRL, EOMI, eyes nml inspection Ears, Nose, Throat Exam: normal ENT inspection, pharynx normal, moist mucous membranes Neck Exam: normal inspection, non-tender, supple, full range of motion Respiratory Exam: normal breath sounds, lungs clear, No respiratory distress Cardiovascular Exam: regular rate/rhythm, normal heart sounds Gastrointestinal/Abdomen Exam: soft, tenderness (with incisions from lap appy s urgery last night), No mass Pelvic Exam: deferred Rectal Exam: deferred Back Exam: normal inspection, normal range of motion, No CVA tenderness, No vertebral tenderness Extremity Exam: normal inspection, normal range of motion Skin Exam: normal color, warm, dry Wound Assessment: Skin/Wound Assessment Wound/Incision Assessment Start: 09/02/24 22:00 Text: Status: Active Freq: Q6H Protocol: Document 09/03/24 09:53 AR (Rec: 09/03/24 09:53 AR [id number]) Wound/Incision Assessment Right Anterior Abdomen Wound Assessment Shift Assessment Wound Type Incision Dressing Status Dry & Intact Comment CDI Final Diagnosis/Problem List - Final Discharge Diagnosis/Problem (1) Appendicitis Current Visit: Yes Status: Acute Assessment & Plan: - CT abd/ pelvis reviewed - CBC, CMP reviewed - Post op day #1 - Pt reports no pain at this time - Ok per surgery to d/c today. - scripts sent in to pharmacy by surgery - education provided post op lap appy. Code(s): K37 - UNSPECIFIED APPENDICITIS (2) Uterine polyp Current Visit: Yes Status: Chronic Assessment & Plan: - as seen on transvaginal US- F/u OP - Pt reports she has a known hx of this Code(s): N84.0 - POLYP OF CORPUS UTERI (3) BMI 30.0-30.9,adult Current Visit: Yes Status: Chronic Assessment & Plan: - advised diet and exercise control Code(s): Z68.30 - BODY MASS INDEX [BMI] 30.0-30.9, ADULT - Discharge Discharge Date: 09/03/24 Disposition: Home, Self-Care Condition: Stable Prescriptions: Continue Tizanidine HCl 4 mg [Zanaflex 4 MG] 4 mg PO BID PRN PRN #14 tablet PRN Reason: Muscle Spasms Fluoxetine HCl 10 mg [Prozac 10 mg] 10 mg PO HS Ropinirole HCl 0.5 mg [Requip 0.5 MG] 0.25 mg PO DAILY Duloxetine HCl 30 mg [Cymbalta 30 MG Capsule] 30 mg PO DAILY Ciprofloxacin [Cipro 500 MG] 500 mg PO BIDAC #14 tablet Ondansetron ODT 4 MG [Zofran Odt 4 mg] 4 mg PO Q6H PRN PRN #10 tablet PRN Reason: Nausea/Vomiting Gabapentin [Neurontin ] 600 mg PO TID Instructions: Appendectomy - Discharge instructions Additional Instructions: DR SHAW OFFICE WILL SEND IN PAIN MEDICATION TO YOUR PHARMACY Follow up with: SHEREEN SHAW [ACTIVE STAFF] - 09/18/24 11:25 am ([place] Office) YESSENIA HUGHES NP [Primary Care Provider] - 09/10/24 10:15 am
--- NOTE | 2024-09-04 10:55 | OP ---
SURGERY DATE/TIME: 09/02/2024 PREOPERATIVE DIAGNOSIS: Acute appendicitis. POSTOPERATIVE DIAGNOSIS: Acute appendicitis. PROCEDURE: Laparoscopic appendectomy. SURGEON: Abbe Hercules MD. ANESTHESIA: General endotracheal tube. COMPLICATIONS: None. CONDITION: Stable. INDICATIONS: Patient with acute appendicitis. DESCRIPTION OF PROCEDURE AND FINDINGS: Patient was taken to surgery. General anesthetic. Routine prep and drape. Veress needle inserted in right upper quadrant. Insufflated to a pressure of 14. Two 5's and a 12. Good visualization. A little mobilization, it was anchored down in 2 places. At this time, it was satisfactory stapling. The mesoappendix was taken with 2 cartridge and then, the base taken with cartridge. It had not rupture. There was a focal gangrenous area in the mid portion. Placed in a bag and removed. The field was irrigated, it was dry, it was clean. Hole closure device was used at the 12 port. Skin closed with 4-0 Vicryl and Steri-Strips. Patient tolerated the procedure satisfactorily. Findings were discussed with the family in waiting room.
== END 2024-09-03 10:05 | disposition home or self-care (01) ==
LOC: ED 10:40 → MED SURG 20:58
PROVIDERS: ADMIT Student in an Organized Health Care Education/Training Program; ATTEND Student in an Organized Health Care Education/Training Program
DX: K37 Unspecified appendicitis (principal); N84.0 Polyp of corpus uteri; Z68.30 Body mass index [BMI] 30.0-30.9, adult; Z79.899 Other long term (current) drug therapy
CPT/HCPCS: 36000; 36415; 44970; 74177; 76830; 80053; 81001; 83690; 84134; 84484; 84703; 85025; 85027; 87086; 96365; 96374; 96375; 99284; G0378; Q3014; J0690; J0694; J1100; J1170; J1885; J2270; J2405; J2704; J3010; A9270-GY

== ENCOUNTER 2024-10-23 09:27 | Day surgery (SDC) | payer BC ==
[2024-10-23] MEDS ORDERED: Depo-Medrol 40 MG/ML IM ONE (09:28)
[2024-10-23] MEDS ORDERED: BUPIVACAINE 0.5% VIAL IJ ONE (09:28)
[2024-10-23 10:06] LABS: HCG URINE TEST NEGATIVE (NEGATIVE)
[2024-10-23] MEDS ORDERED: DIPRIVAN 200 MG/20 ML IV ONE (11:10)
--- NOTE | 2024-10-23 13:21 | XRAY ---
Indication: Bilateral SI joint injection. Intraoperative fluoroscopy provided for 19 seconds. 2 digital spot image submitted for interpretation demonstrates posterior needle tips projecting over the left and right SI joints. Small amount of contrast injected for needle tip placement. Correlate with intraoperative findings/report.
--- NOTE | 2024-10-23 13:23 | XRAY ---
19 seconds of fluoroscopy was used in surgery for a sacroiliac joint injection.
== END 2024-10-23 11:45 | disposition home or self-care (01) ==
LOC: SDC-PAIN 09:27
PROVIDERS: ATTEND Psychiatry & Neurology Pain Medicine
DX: M46.1 Sacroiliitis, not elsewhere classified (principal); R73.03 Prediabetes
CPT/HCPCS: 27096; 72202; 77002; 81025; 82947; J2704; Q9966